=== PATIENT | female | born 1980 | race Caucasian/White ===

== ENCOUNTER 2019-03-18 08:04 | Outpatient (CLI) | payer OTHER ==
--- NOTE | 2019-03-18 11:08 | Mammography Report ---
Reason: ROUTINE MAMMO Procedure Date: 03/18/2019 Accession Number: [id number] / [id number] Procedure: VIKA - Screening Mammo w/Minesh CPT Code: Final Report FULL RESULT: EXAM: Screening Mammo w/Minesh DATE: 03/18/2019 8:31 AM CLINICAL HISTORY: The patient is an asymptomatic 38-year-old nulliparous female. Second degree family history of breast cancer. TECHNIQUE: (B) - Bilateral CC and MLO views were obtained. COMPARISON: Baseline. PARENCHYMAL PATTERN: (D) - The breasts demonstrate heterogeneously dense fibroglandular parenchyma bilaterally. FINDINGS: Nonspecific glandular asymmetry noted on this baseline study. There are no suspicious masses, calcifications, or areas of distortion. IMPRESSION: Negative examination. BI-RADS category 1. RECOMMENDATION: (ANNUAL) - Recommend routine annual screening mammography. BI-RADS CATEGORY: (1) - Negative. STANDARD QUALIFYING STATEMENTS: 1. This examination was not reviewed with the aid of Computer-Aided Detection (CAD). 2. A negative or benign imaging report should not preclude biopsy if clinically suspicious findings are present. 3. Dense breasts may obscure an underlying neoplasm. 4. This examination was reviewed with the aid of 3D breast imaging (tomosynthesis).
== END 2019-03-18 08:05 | disposition home or self-care (01) ==
LOC: DI 08:04
PROVIDERS: ATTEND Nurse Practitioner Obstetrics & Gynecology
DX: Z12.31 Encounter for screening mammogram for malignant neoplasm of breast (principal); Z80.3 Family history of malignant neoplasm of breast
CPT/HCPCS: 77063; 77067

== ENCOUNTER 2019-08-19 18:51 | Outpatient (CLI) | payer BC | END 2019-08-19 18:52 | disposition home or self-care (01) | LOC: COV 18:51 | PROVIDERS: ATTEND Family Medicine | DX: M79.10 Myalgia, unspecified site (principal); R53.83 Other fatigue; R68.83 Chills (without fever); R19.7 Diarrhea, unspecified | CPT/HCPCS: 81599 ==

== ENCOUNTER 2020-12-01 08:00 | Outpatient (CLI) | payer BC ==
[2020-12-01 23:24] LABS: CHLAMYDIA TRACHOMATIS DNA NEGATIVE (NEGATIVE); NEISSERIA GONORRHOEAE DNA NEGATIVE (NEGATIVE); TRICHOMONAS VAGINALIS DNA NEGATIVE (NEGATIVE)
== END 2020-12-01 23:59 | disposition home or self-care (01) ==
LOC: LAB.WC 08:00
PROVIDERS: ATTEND Nurse Practitioner Obstetrics & Gynecology
DX: Z11.3 Encounter for screening for infections with a predominantly sexual mode of transmission (principal)
CPT/HCPCS: 87491; 87591; 87661

== ENCOUNTER 2021-11-03 20:13 | Outpatient (CLI) | payer BC ==
--- NOTE | 2021-11-04 09:12 | Ultrasound Report ---
PROCEDURE: OB First Trimester w/TV INDICATIONS: POSITIVE TEST, UTERINE CYST OUTSIDE/PRIOR DATING DATA: Last menstrual period (LMP): 08/27/2021. LMP-based estimated date of delivery (TACOS): 06/03/2022. First dating scan (date and location): 10/20/2021. Estimated date of delivery (TACOS) from first dating scan: 05/31/2022. TECHNIQUE: Real-time scanning was performed of the fetus and maternal pelvic organs, with image documentation. Endovaginal scanning was also performed to better visualize the fetus and maternal ovaries. COMPARISON: 10/20/2021 FINDINGS: Embryo: Intrauterine gestation is present with the heart rate of 169 bpm. Mean sac diameter is 3.8 cm. Seltzer-rump length is 3.1 cm. Estimated gestational age by initial ultrasound is 10 weeks and 1 day, concordant with composted gest ational age today at 10 weeks. Maternal adnexal structures are not well seen on today's study. Left uterine horn fluid is slightly smaller measuring 2.1 x 1.8 x 1.7 cm today, previously 2.2 cm. Sm aller additional fluid collections are also again seen. Intramural fibroid is present, not measured today. IMPRESSION: Rodas intrauterine at 10 weeks and 1 day by initial ultrasound, concordant with today's biometry. The is located in the right aspect of the uterus. Fluid in the left aspect of the uterus is slightly smaller on today's study compared to 10/20/2021, and may represent an old perigestational hem orrhage. Additional small perigestational hemorrhagic foci also again seen. These can be followed on subsequent imaging, including second trimester anatomic survey. Reviewed by: Abisai Mcgowan MD on 11/04/2021 9:10 AM PDT Approved by: Abisai Mcgowan MD on 11/04/2021 9:10 AM PDT Station ID: [id number]
== END 2021-11-03 20:14 | disposition home or self-care (01) ==
LOC: DI 20:13
PROVIDERS: ATTEND Obstetrics & Gynecology
DX: N85.8 Other specified noninflammatory disorders of uterus (principal); Z32.01 Encounter for pregnancy test, result positive

== ENCOUNTER 2022-01-17 19:26 | Outpatient (CLI) | payer BC ==
--- NOTE | 2022-01-18 10:51 | Ultrasound Report ---
PROCEDURE: OB Detailed Eval INDICATIONS: SUPERVISION OF OUTSIDE/PRIOR DATING DATA: Last menstrual period (LMP): 08/27/2021. LMP-based estimated date of delivery (TACOS): 06/03/2022. First dating scan (date and location): 10/20/2021. Estimated date of delivery (TACOS) from first dating scan: 05/31/2022. TECHNIQUE: Real-time scanning was performed of the fetus, with image documentation and biometric measurements. Endovaginal scanning: None COMPARISON: 10/04/2021 FINDINGS: General: A single living intrauterine gestation is present. Presentation: Vertex Placenta: Placental position is posterior, without previa. Amniotic fluid index: 14.4 cm, normal for gestational age. heart rate: 150 beats per minute. Maternal cervical canal: 5.3 cm long; normal length is 2.5 cm or more. Uterine complex fibroid noted measuring approximately 5.6 cm biometrics: Biparietal diameter: 1.1 cm, 21 week 4 day Head circumference: 9.2 cm, 21 week 4 day Abdominal circumference: 16.2 cm, 21 week 2 day Femur length: 3.6 cm, 21 week 3 day Estimated gestational age from initial scan: 20 week 6 day Composite gestational age from present scan: 21 week 2 day Estimated weight and percentile: 418 g, 72nd percentile Measurement variability in biometric dating: +/- 10 days from 12-20 weeks gestation, +/- 2 weeks from 20-30 weeks gestation, +/- 3 weeks at 30 weeks gestation or later. Anatomic survey: Neuro: Ventricles are normal at less than 10 mm. Cisterna magna is normal at 3-11 mm. Cerebellum i s normal in size and morphology. Nuchal skin fold: Normal at less than 6 mm between 14 and 20 weeks gestational age. Face: Nose and lips, facial profile are normal. Spine: No evidence for spina bifida. Heart: 4-chambered heart is present, with normal ventricular outflow tracts. Diaphragm: Diaphragm is intact. Stomach: Left-sided stomach is present. Kidneys: No hydronephrosis. Normal is less than 5 mm in 2nd trimester, less than 7 mm in 3rd trimester. Cord: 3 vessel cord has orthotopic insertion. Bladder: Normal in size. Extremities: All 4 extremities are visualized. IMPRESSION: 1. Single live intrauterine consistent with 20 week 6 day gestation. No perigestational ble ed. 2. Complex myometrial fibroid, 5.6 cm Reviewed by: Kali Walden MD on 01/18/2022 9:50 AM JENNIFER Approved by: Kali Walden MD on 01/18/2022 9:50 AM JENNIFER Station ID: [id number]
== END 2022-01-17 19:27 | disposition home or self-care (01) ==
LOC: DI 19:26
PROVIDERS: ATTEND Obstetrics & Gynecology
DX: O09.512 Supervision of elderly primigravida, second trimester (principal); Z36.89 Encounter for other specified antenatal screening; D25.9 Leiomyoma of uterus, unspecified; O34.12 Maternal care for benign tumor of corpus uteri, second trimester; Z3A.20 20 weeks gestation of pregnancy

== ENCOUNTER 2022-02-18 09:40 | Outpatient (CLI) | payer BC ==
[2022-02-18 10:50] LABS: HCT - HEMATOCRIT 35.4 % (37.0-47.0); HGB - HEMOGLOBIN 11.8 g/dL (12.0-16.0); MEAN CORPUSCULAR HEMOGLOBIN 29.7 pg (27.0-31.0); MEAN CORPUSCULAR HGB CONC 33.3 g/dL (32.0-36.0); MEAN CORPUSCULAR VOLUME 89.2 fL (81.0-99.0); MEAN PLATELET VOLUME 9.6 fL (7.9-10.8); RED BLOOD COUNT 3.97 10^6/uL (4.20-5.40); RED CELL DISTRIBUTION WIDTH 12.9 % (12.0-15.0); WHITE BLOOD COUNT 12.1 x10^3/uL (4.8-10.8)
== END 2022-02-18 09:41 | disposition home or self-care (01) ==
LOC: LAB 09:40
PROVIDERS: ATTEND Obstetrics & Gynecology
DX: O09.92 Supervision of high risk pregnancy, unspecified, second trimester (principal); Z36.89 Encounter for other specified antenatal screening
CPT/HCPCS: 36415; 82950; 85027

== ENCOUNTER 2022-03-23 17:42 | Outpatient (CLI) | payer MEDICAID ==
[2022-03-23 18:10] VITALS: BP 128/75
[2022-03-23 18:30] LABS: BILIRUBIN,URINE NEGATIVE (NEGATIVE); GLUCOSE, URINE (UA) NEGATIVE (NEGATIVE); KETONES,URINE (UA) NEGATIVE (NEGATIVE); LEUKOCYTE ESTERASE, URINE NEGATIVE (NEGATIVE); NITRITE,URINE NEGATIVE (NEGATIVE); OCCULT BLOOD,URINE NEGATIVE (NEGATIVE); PH,URINE 6.5 PH (5.0-7.5); PROTEIN,URINE NEGATIVE (NEGATIVE); UROBILINOGEN,URINE 0.2 (NORMAL) E.U./dL (NORMAL)
[2022-03-23 18:33] LABS: CLARITY,URINE CLEAR (CLEAR)
--- NOTE | 2022-03-23 18:47 | PROVIDER PROGRESS NOTE ---
- HPI Chief Complaint: Labor Current : Vital Signs Temperature 98.6 F 03/23/22 18:07 Heart Rate 87 03/23/22 18:07 Respiratory Rate 18 03/23/22 18:07 Blood Pressure 128/75 03/23/22 18:07 Temperature 98.6 F 03/23/22 18:07 Heart Rate 87 03/23/22 18:07 Respiratory Rate 18 03/23/22 18:07 Blood Pressure 128/75 03/23/22 18:07 O2 Saturation If not protocol: Oxygen Flow, liters/minute - Procedures OB Procedure Performed: NST Diagnosis/Indication for NST: labor NST Procedure: EFM: 130-140s, moderate variability, positive accelerations 10x10, no decelerations [place]: no contractions noted NST reactive/Cat 1 Performed and read 03/23/22 Service Date of procedure: 03/23/22 - Plan Plan: 41yo at 29.5w presenting with left pelvic discomfort [place]. Denies regular contractions, no leaking fluid, no bleeding. Good movement. During bedside ultrasound tender with extremities movement in same area, discomfort may be due to position or round ligament pain. Tolerating regular diet. BM today. No vomiting. VSS GEN: NAD CV: Regular rate Resp: Breathing unlabored Abd: soft, TTP left side where parts palpated Ext: nt TV US: CL 3.2cm, closed SVE: closed, long, posterior, -3 OB US Bedside: BPP 8/8 NST reactive 41yo at 29.5, false labor third trimester - NST reactive and BPP reassuring - CL long and SVE closed - labor precautions - Follow up as scheduled WC
== END 2022-03-23 18:45 | disposition home or self-care (01) ==
LOC: WFO 17:42 → FBP 17:46 → WFO 18:45
PROVIDERS: ATTEND Obstetrics & Gynecology
DX: O47.03 False labor before 37 completed weeks of gestation, third trimester (principal); Z3A.29 29 weeks gestation of pregnancy
CPT/HCPCS: 81001; 81003; 87086; 99214

== ENCOUNTER 2022-05-09 17:00 | Outpatient (CLI) | payer MEDICAID ==
--- NOTE | 2022-05-10 15:13 | Ultrasound Report ---
PROCEDURE: OB F/U or Repeat INDICATIONS: UTERINE SIZE DATE DISCREPENCY OUTSIDE/PRIOR DATING DATA: Last menstrual period (LMP): 08/27/2021. LMP-based estimated date of delivery (TACOS): 06/03/2022. First dating scan (date and location): 10/20/2021. Estimated date of delivery (TACOS) from first dating scan: 05/31/2022. The below data below was generated using the ultrasound TACOS of 05/31/2022 TECHNIQUE: Real-time scanning was performed of the fetus, with image documentation and biometric measurements. COMPARISON: OB ultrasound 01/17/2022 FINDINGS: General: A single living intrauterine gestation is present. Presentation: Vertex Placenta: Placental position is posterior, without previa. Amniotic fluid index: 10.2 cm, within normal limits for gestational age. Largest pocket measures 3. 3 cm heart rate: 145 beats per minute. Maternal cervical canal: Not well seen biometrics: Biparietal diameter: 9.2 cm 37 weeks 2 days Head circumference: 34 cm 39 weeks 1 day Abdominal circumference: 32.2 cm 36 weeks 0 days Femur length: 6.9 cm 35 weeks 2 days Estimated gestational age from initial scan: 36 weeks 6 days Composite gestational age from present scan: 37 weeks 0 days Estimated weight and percentile: 2890 g 39th percentile Measurement variability in biometric dating: +/- 10 days from 12-20 weeks gestation, +/- 2 weeks from 20-30 weeks gestation, +/- 3 weeks at 30 weeks gestation or more. Other: Incidental note of a nuchal cord. IMPRESSION: Single live intrauterine with ultrasound gestational age today of 37 weeks 0 days. Incidental note of a nuchal cord. Reviewed by: Caroline Oswald MD on 05/10/2022 3:11 PM PST Approved by: Caroline Oswald MD on 05/10/2022 3:11 PM PST Station ID: [id number]
== END 2022-05-09 17:01 | disposition home or self-care (01) ==
LOC: DI 17:00
PROVIDERS: ATTEND Obstetrics & Gynecology
DX: O26.843 Uterine size-date discrepancy, third trimester (principal); Z3A.37 37 weeks gestation of pregnancy

== ENCOUNTER 2022-05-11 08:00 | Outpatient (CLI) | payer MEDICAID | END 2022-05-11 23:59 | disposition home or self-care (01) | LOC: LAB.WC 08:00 | PROVIDERS: ATTEND Obstetrics & Gynecology | DX: Z36.85 Encounter for antenatal screening for Streptococcus B (principal) | CPT/HCPCS: 87797 ==

== ENCOUNTER 2022-05-23 16:35 | Inpatient (IN) | payer MEDICAID ==
[2022-05-23 17:55] LABS: RUPTURE OF MEMBRANES PLUS POSITIVE (NEGATIVE)
[2022-05-23] MEDS ORDERED: SODIUM CHLORIDE FLUSH 0.9% 10 ML SYRINGE IVP PRN (18:53)
[2022-05-23] MEDS ORDERED: NIFEdipine 10 MG CAPSULE PO PRN (18:53)
[2022-05-23] MEDS ORDERED: LABETALOL 20 MG/4 ML SYRINGE IVP PRN ×3 (18:53)
[2022-05-23] MEDS ORDERED: hydrALAZINE INJ 20 MG/ML VIAL IVP PRN ×2 (18:53)
[2022-05-23] MEDS ORDERED: METHYLERGONOVINE 0.2 MG/ML VIAL IM PRN (18:53)
[2022-05-23] MEDS ORDERED: CARBOPROST TROMETHAMINE 250 MCG/ML AMP IM PRN (18:53)
[2022-05-23] MEDS ORDERED: miSOPROStoL 200 MCG TABLET BC PRN (18:53)
[2022-05-23] MEDS ORDERED: fentaNYL 100 MCG/2 ML VIAL IVP PRN (18:53)
[2022-05-23] MEDS ORDERED: TRANEXAMIC ACID IN NACL 1,000 MG/100 ML BAG IV PRN (18:53)
[2022-05-23] MEDS ORDERED: miSOPROStoL 200 MCG TABLET PR PRN (18:53)
[2022-05-23] MEDS ORDERED: OXYTOCIN/SODIUM CHLORIDE 500 ML IV PRN (18:53)
[2022-05-23] MEDS ORDERED: lidocaine 1% 20 ML MDV ID PRN (18:53)
[2022-05-23] MEDS ORDERED: OXYTOCIN 10 UNIT/ML VIAL IM PRN (18:53)
[2022-05-23] MEDS ORDERED: miSOPROStoL 100 MCG TABLET BC SCH (19:00)
[2022-05-23] MEDS ORDERED: SODIUM CHLORIDE FLUSH 0.9% 10 ML SYRINGE IVP SCH (19:00)
[2022-05-23] MEDS ORDERED: OXYTOCIN/SODIUM CHLORIDE 500 ML IV SCH (19:00)
[2022-05-23 19:05] LABS: BASOPHILS # (AUTO) 0.1 10^3/uL (0.0-0.1); BASOPHILS % (AUTO) 0.5 %; EOSINOPHILS # (AUTO) 0.2 10^3/uL (0.0-0.7); EOSINOPHILS % (AUTO) 1.5 %; HCT - HEMATOCRIT 37.2 % (37.0-47.0); HGB - HEMOGLOBIN 12.6 g/dL (12.0-16.0); LYMPHOCYTES # (AUTO) 2.4 10^3/uL (1.5-3.5); LYMPHOCYTES % (AUTO) 17.6 %; MEAN CORPUSCULAR HEMOGLOBIN 29.3 pg (27.0-31.0); MEAN CORPUSCULAR HGB CONC 33.9 g/dL (32.0-36.0); MEAN CORPUSCULAR VOLUME 86.5 fL (81.0-99.0); MEAN PLATELET VOLUME 10.9 fL (7.9-10.8); MONOCYTES # (AUTO) 1.3 10^3/uL (0.0-1.0); MONOCYTES % (AUTO) 9.5 %; NEUTROPHILS # (AUTO) 9.7 10^3/uL (1.5-6.6); NEUTROPHILS % (AUTO) 70.5 %; PLT - PLATELET COUNT 389 10^3/uL (130-450); RED CELL DISTRIBUTION WIDTH 12.6 % (12.0-15.0); WHITE BLOOD COUNT 13.7 x10^3/uL (4.8-10.8)
--- NOTE | 2022-05-23 19:06 | HISTORY & PHYSICAL EXAMINATION ---
Admit History - Visit Reason Visit Reason: Membranes rupture - : 2 : 1 Care: positive: [facility] Risk/History: positive: None, Other (advanced maternal age) Complications This : positive: None - Mother's Labs Mother's Blood Type: positive: A Mother's RH: positive: Positive GBS: positive: Group B Step Negative Rubella Status: positive: Immune Meds/Allgy - Allergies Allergies/Adverse Reactions: Allergies Allergy/AdvReac Type Severity Reaction Status Date / Time No Known Drug Allergies Allergy Verified 03/23/22 18:28 Review of Systems - Cardiovascular Cariovascular: denies: Irregular heart rate, Chest pain, Edema - Respiratory Respiratory: denies: SOB at rest - Gastrointestinal Gastrointestinal: denies: Abdominal pain Physical - Abdominal Exam Vital Signs: Temp Pulse Resp BP Pulse Ox O2 Flow Rate 98.1 F 82 16 137/81 H 100 05/23/22 17:00 05/23/22 17:00 05/23/22 17:00 05/23/22 17:00 05/23/22 17:00 Contraction Frequency (min/apart): no contractions Uterine Resting Tone: positive: Soft - Monitoring Strip Review: positive: Category I - Presentation Presentation: positive: Vertex - Vaginal Exam Membranes: positive: Membranes ruptured - Speculum Exam Speculum Exam Performed: positive: No Findings: positive: Other (amniosure positive) Plan for Labor - Plan For Labor I expect patient to be DC'd or transferred within 96 hours.: Yes Plan for Labor: 1. admit to labor and delivery 2. counseled patient regarding induction. At this point, patient would like expectant management with potential augmentation at 9:30 pm. Discussed prolonged rupture of membranes with increased risk of infection. 3. GBS negative 4. wellbeing is reassuring
--- NOTE | 2022-05-23 20:44 | PROVIDER PROGRESS NOTE ---
Labor Progress Note - Uterine Monitoring Uterine Monitoring Mode: positive: External toco Contraction Frequency (min/apart): none - Monitoring Monitor Mode: positive: External ultrasound Heart Rate Variability: positive: Moderate (6-25 bmp) Accelerations: positive: Present, 15x15 - Vaginal Exam Dilation (in cm): 0 - Labor Progress Note Labor Progress Note/Additional Text: Patient is not dilated. Discussed management options. Will start with cytotec 50 mcg. Risks, benefits, alternatives discussed and all questions answered. I reviewed labor process and we discussed pain management options- patient is open to epidural if needed.
[2022-05-24] MEDS: LACTATED RINGERS 1,000 ML IV SCH ×2 (10:38→15:11)
[2022-05-24] MEDS ORDERED: ROPIVACAINE 0.2% 200 MG/100 ML BAG EP ONE (10:46)
[2022-05-24] MEDS ORDERED: ROPIVACAINE 0.2% 200 MG/100 ML BAG EP PRN ×2 (11:18→17:19)
[2022-05-24] MEDS ORDERED: NALOXONE 0.4 MG/ML VIAL IVP PRN (11:18)
[2022-05-24] MEDS ORDERED: ePHEDrine 50 MG/ML VIAL IVP PRN (11:18)
--- NOTE | 2022-05-24 11:18 | ANESTHESIA ---
Pre-Anesthesia VS, & Labs - Diagnosis active labor - Procedure vaginal delivery Vital Signs: Temp Pulse Resp BP Pulse Ox O2 Flow Rate 36.9 C 82 16 137/81 H 100 05/23/22 19:40 05/23/22 17:00 05/23/22 17:00 05/23/22 17:00 05/23/22 17:00 Height: 5 ft 7 in Weight (kg): 95.617 kg Body Mass Index: 33.0 BMI Classification: Obese - NPO Other (clear liquids) - Is Patient ?: Yes - Lab Results Current Lab Results: Laboratory Tests 05/23/22 18:30: WBC 13.7 H, RBC 4.30, Hgb 12.6, Hct 37.2, MCV 86.5, MCH 29.3, MCHC 33.9, RDW 12.6, Plt Count 389, MPV 10.9 H, Neut # (Auto) 9.7 H, Lymph # (Auto) 2.4, Wilkes # (Auto) 1.3 H, Eos # (Auto) 0.2, Baso # (Auto) 0.1, Absolute Nucleated RBC 0.00, Nucleated RBC % 0.0 05/23/22 18:30: Blood Type A POSITIVE, Antibody Screen NEGATIVE Lab results reviewed: Yes Fish Bones: 05/23/22 18:30 Home Medications and Allergies Active Medications Carboprost Tromethamine (Carboprost Tromethamine 250 Mcg/Ml Amp) 250 mcg IM .ONCE PRN PRN Reason: Hemorrhage Fentanyl (Fentanyl 100 Mcg/2 Ml Vial) 50 mcg IVP Q1H PRN PRN Reason: Severe Pain (score 7-10) Hydralazine HCl (Hydralazine Inj 20 Mg/Ml Vial) 5 - 10 mg IVP Q20M PRN; Protocol PRN Reason: SBP> or= 160 OR DBP> or= 110 Hydralazine HCl (Hydralazine Inj 20 Mg/Ml Vial) 10 mg IVP .ONCE PRN; Protocol PRN Reason: SBP> or= 160 OR DBP> or= 110 Oxytocin/Sodium Chloride (Pitocin/Sodium Chloride) 500 mls @ 999 mls/hr IV PRN PRN; Protocol PRN Reason: POST- HEMORR PREVENTION Tranexamic Acid (Tranexamic 1,000 Mg/100ml-Nacl) 1,000 mg in 100 mls @ 600 mls/hr IV Q30M PRN PRN Reason: EBL >1200mL and within 3hr Lactated Ringer's (Lr) 1,000 mls @ 75 mls/hr IV .[id number] GENNARO Oxytocin/Sodium Chloride (Pitocin/Sodium Chloride) 500 mls @ 1 mls/hr IV TITR GENNARO; Protocol Labetalol HCl (Labetalol 20 Mg/4 Ml Syringe) 20 - 80 mg IVP Q10M PRN; Protocol PRN Reason: SBP> or= 160 OR DBP> or= 110 Labetalol HCl (Labetalol 20 Mg/4 Ml Syringe) 20 mg IVP .ONCE PRN; Protocol PRN Reason: SBP> or= 160 OR DBP> or= 110 Labetalol HCl (Labetalol 20 Mg/4 Ml Syringe) 20 - 40 mg IVP Q10M PRN; Protocol PRN Reason: SBP> or= 160 OR DBP> or= 110 Lidocaine HCl (Lidocaine 1% 20 Ml Mdv) 20 ml ID .ONCE PRN PRN Reason: PERINEAL REPAIR Stop: 05/26/22 18:53 Methylergonovine Maleate (Methylergonovine 0.2 Mg/Ml Vial) 0.2 mg IM .ONCE PRN PRN Reason: Hemorrhage Misoprostol (Misoprostol 200 Mcg Tablet) 600 mcg BC .ONCE PRN PRN Reason: Hemorrhage Misoprostol (Misoprostol 200 Mcg Tablet) 800 mcg VT .ONCE PRN PRN Reason: Hemorrhage Misoprostol (Misoprostol 100 Mcg Tablet) 50 mcg BC Q4H [facility] Stop: 05/24/22 15:01 Last Admin: 05/23/22 20:43 Dose: 50 mcg Nifedipine (Nifedipine 10 Mg Capsule) 10 - 20 mg PO Q20M PRN; Protocol PRN Reason: SBP> or= 160 OR DBP> or= 110 Oxytocin (Oxytocin 10 Unit/Ml Vial) 10 unit IM .ONCE PRN PRN Reason: Step One if no IV access. Sodium Chloride (Sodium Chloride Flush 0.9% 10 Ml Syringe) 10 ml IVP PRN PRN PRN Reason: NEEDED PER PROVIDER ORDERS Sodium Chloride (Sodium Chloride Flush 0.9% 10 Ml Syringe) 10 ml IVP Q8H [facility] Allergies/Adverse Reactions: Allergies Allergy/AdvReac Type Severity Reaction Status Date / Time No Known Drug Allergies Allergy Verified 03/23/22 18:28 Anes History & Medical History - Anesthetic History Family history of Anesthesia Complications: Denies Family history of Malignant Hyperthermia: Denies - Medical History Cardiovascular: reports: None Pulmonary: reports: None Gastrointestinal: reports: None Urinary: reports: None Neuro: reports: None Musculoskeletal: reports: None Endocrine/Autoimmune: reports: None Blood Disorders: reports: None Skin: reports: None Smoking Status: Never smoker Psychosocial: reports: No issues indicated History of Cancer?: No - Obstetrical History : 2 Parity: 0 Events: reports: None, Other (advanced maternal age) Complications: reports: None Exam General: Alert, Oriented x3, Cooperative, No acute distress Dental: WNL Mouth Openin Fingerbreadth Neck Mobility: Normal Mallampati classification: II Thyromental Distance: 4-6 cm Mental/Cognitive Status: Alert/Oriented X3, Normal for patient Plan Anesthesia Type: Epidural Consent for Procedure(s) Verified and Reviewed: Yes Code Status: Attempt Resuscitation ASA classification: 2-Mild systemic disease Is this case an emergency?: No
[2022-05-24] MEDS ORDERED: OXYTOCIN/SODIUM CHLORIDE 500 ML IV SCH (12:52)
--- NOTE | 2022-05-24 13:00 | PROVIDER PROGRESS NOTE ---
Labor Progress Note - Uterine Monitoring Uterine Monitoring Mode: positive: External toco Contraction Frequency (min/apart): 6 Contraction Intensity: positive: Mild to moderate Uterine Resting Tone: positive: Soft - Monitoring Monitor Mode: positive: External ultrasound Heart Rate Baseline: 140 Heart Rate Variability: positive: Moderate (6-25 bmp) Accelerations: positive: Present, 15x15 Decelerations: positive: None Strip Review: positive: Category I - Vaginal Exam Dilation (in cm): 5 Effacement (%): 70 Station: -3 Cervical Position: Midposition - Labor Progress Note Labor Progress Note/Additional Text: 41yo at 38.4w admitted for PROM - Misoprostol 50mcg x1 - Receiving nitrous oxide now - Discussed Pitocin, she will accept Pitocin now. Proceed with IOL. She would like epidural prior to Pitocin. - Reevaluate this afternoon - PROM now, 22h. Afebrile and Cat 1. GBS neg.
[2022-05-24] MEDS ORDERED: fentaNYL 100 MCG/2 ML VIAL ONE (16:46)
[2022-05-24] MEDS ORDERED: SODIUM CHLORIDE 0.9% 10 ML VIAL IVP ONE (16:46)
--- NOTE | 2022-05-24 17:21 | ANESTHESIA PROCEDURE NOTE ---
Anesthesia Epidural Template - Patient Report Patient Reports: positive: Other (Complains of mid-abdominal cramping/pressure) - Plan Plan: positive: Other (changed rate to 12ml [id number] [id number]) - Other Comments Other Comments: Epidural bolused with 100 mcg fentanyl in 8ml PFNS. Reports pain relieved.
--- NOTE | 2022-05-24 21:16 | DELIVERY NOTE ---
Delivery Note - Labor Labor: positive: Augmented by oxytocin (up to 20mu) - Delivery Method Infant Delivery Method: positive: Spontaneous vaginal delivery - Cervical Ripening Method Cervical Ripening Method: positive: Misoprostil (50mcg x1) - Presentation Presentation: positive: Vertex, OA - occiput anterior - Nuchal Cord Nuchal Cord: positive: Present (x1, reduced) - Anesthetic Anesthetic Type: - Amniotic Fluid Description Amniotic Fluid Description: positive: Clear - Episiotomy Type Episiotomy Type: positive: None - Laceration Laceration: positive: 2nd degree (vaginal) - Suture Suture Type: positive: Vicryl Suture Size: positive: 3-0 - Delivery Outcome Delivery Outcome: positive: Livebirth - Cooter Cooter: positive: Placed in direct skin contact with mother, Bulb syringe, Stimulated, Warmed, [place] used sex: positive: Male - Cord Cord: positive: 3 vessels - Placenta Placenta: positive: Intact, Spontaneous - Estimated Blood Loss Estimated Blood Loss (in cc): 250 - Post Delivery Events Post Delivery Events: positive: No post delivery events - Delivery Comments (Free Text/Narrative) Delivery Comments (Free Text/Narrative): 100/0 and maternal pushing began with good efforts. Pushed about one hour. Head delivered, OA. Nuchal cord x1, reduced. Body delivered without difficulty. placed on mother's abdomen. Delayed cord clamping. Cord blood collected. Fundus firm. Placenta delivered spontaneously and intact, marginal cord insertion, 3vc. Vagina and perineum inspected- second degree vaginal laceration repaired in usual fashion with 3-0 vicryl. Hemostasis. QBL 250cc. Family bonding at bedside doing well.
[2022-05-24] MEDS ORDERED: HYDROCORTISONE 1% CREAM 28 GM TUBE PR PRN (21:27)
[2022-05-24] MEDS ORDERED: WITCH HAZEL/GLYCERIN 1 PAD TOP PRN (21:27)
[2022-05-24] MEDS ORDERED: LACTATED RINGERS 1,000 ML IV SCH (22:00)
[2022-05-24] MEDS: ACETAMINOPHEN 500 MG TABLET PO SCH (22:01)
[2022-05-24] MEDS: IBUPROFEN 800 MG TABLET PO SCH (22:01)
[2022-05-25] MEDS: IBUPROFEN 800 MG TABLET PO SCH ×5 (03:57→22:59)
[2022-05-25] MEDS: ACETAMINOPHEN 500 MG TABLET PO SCH ×3 (05:59→23:00)
[2022-05-25] MEDS: DOCUSATE SODIUM 100 MG CAPSULE PO SCH ×2 (09:32→21:25)
--- NOTE | 2022-05-25 12:47 | PROVIDER PROGRESS NOTE ---
Subjective - Prog Note Date Prog Note Date: 05/25/22 Prog Note Time: 08:45 - Subjective Subjective: Subjective Patient reports she is doing well. Lochia appropriate. Denies heavy bleeding. Ambulating. Pelvic and abdominal pain well-controlled. Tolerating oral intake. Diet: Regular. Voiding without difficulty. Passing flatus. Denies BM. Patient is bonding with baby in room Breast feeding going well. Denies feeling lightheaded, dizzy or excessively fatigued. Control: Undecided Objective General: Alert, oriented, no apparent distress. Cardiovascular: Regular rate. Regular rhythm. Lungs: No increased work of breathing. Abdomen: Uterus firm. Below umbilicus. No guarding or rebound. Extremities: No pain on palpation. No cords palpated. Distal pulses intact. Assessment and Plan day 1. -Routine care -Anticipate discharge tomorrow Objective - Vital Signs/Intake & Output Vital Signs: Vital Signs x48h Temp Pulse Resp BP 05/25/22 09:15 97.9 F 87 14 120/80 Intake & Output: Intake & Output 05/22/22 05/23/22 05/24/22 05/25/22 23:59 23:59 23:59 23:59 Intake Total 2245.833 400 Output Total 1275 300 Balance 970.833 100 - Lab Results Fish Bones: 05/23/22 18:30
[2022-05-26] MEDS: IBUPROFEN 800 MG TABLET PO SCH ×2 (05:05→11:13)
[2022-05-26] MEDS: DOCUSATE SODIUM 100 MG CAPSULE PO SCH (07:37)
[2022-05-26] MEDS: ACETAMINOPHEN 500 MG TABLET PO SCH (07:37)
[2022-05-26 08:08] VITALS: BP 110/55
--- NOTE | 2022-05-26 11:59 | Discharge Plan ---
Discharge Plan Problem Reviewed?: Yes Disposition: Home, Self Care Condition: Good Diet: Regular Activity Restrictions: Activity as Tolerated Shower Restrictions: No Weight Bearing: Full Weight Instruction Topics: Vaginal After, Vaginal Incis Care, Depression , No Smoking: If you smoke, Please STOP! Call for help. Follow-up with: Oscar Fritz MD [Provider Admit Priv/Credential] - Gricelda Greenwood MD [Primary Care Provider] -
--- NOTE | 2022-05-26 12:04 | DISCHARGE SUMMARY ---
"Discharge Summary Admit Date: 05/23/22 Discharge Date: 05/26/22 Discharging Provider: Korin Knutson DO Condition at Discharge: Good Discharge Disposition: 01 Home, Self Care Discharge Facility Name: [facility] - DIAGNOSES Admission Diagnoses: Premature rupture of membranes, 38w - HPI History of Present Illness: 41yo presented to [facility] at 38.3w with rupture of membranes not yet in labor. - CONSULTS | PROCEDURES Consultations: Epidural Procedures: Epidural - HOSPITAL COURSE Hospital Course: 41yo presented to [facility] at 38.3w with rupture of membranes not yet in labor. She was given misoprostol x1 and then started on Pitocin. Epidural given. She progressed to 10cm. , uncomplicated. Second degree vaginal laceration repaired with 3-0 Vicryl. Recovering well . Appropriate lochia. Labial swelling, which is stable. well. Mood is good. She feels ready for discharge PPD#2. care reviewed. - ALLERGIES Allergies/Adverse Reactions: Allergies Allergy/AdvReac Type Severity Reaction Status Date / Time No Known Drug Allergies Allergy Verified 03/23/22 18:28 - PHYSICAL EXAM AT DISCHARGE General Appearance: positive: No acute distress Eyes Bilateral: positive: EOMI Abdomen: positive: Non-tender (FF) Extremities: positive: Non-tender - LABS Result Diagrams: 05/23/22 18:30 - QUALITY (Female Hip Fx Only) Was patient sent home on osteoporosis medication?: No - FOLLOW UP Follow Up: 06/01 1p as scheduled or about 2w - TIME SPENT Time Spent in Discharge (Minutes): 30"
--- NOTE | 2022-05-26 12:51 | Labor Flowsheet ---
Labor Flowsheet Datetime Report Generated by CPN: 05/26/2022 12:51 Datetime: 05/26/2022 07:52 VITAL SIGNS NBP Sys/Yesika/Mean (mmHg): 110 : 55 : 67 Pulse: 65 Datetime: 05/25/2022 16:04 SpO2 (%): 98 Datetime: 05/25/2022 01:00 Stage of : Datetime: 05/25/2022 00:52 Respirations: 18 Datetime: 05/24/2022 23:57 Temperature (C): 36.8 Temperature Route: Oral Datetime: 05/24/2022 22:01 PAIN Pain Scale: 3 Pain Presence: Constant Pain Type: Dull Pain Location: Perineum Pain Relief Measures: Pain Medication Given; Comfort Measures Datetime: 05/24/2022 20:46 MEDICATIONS Pitocin (milliunits): Increased to @ 999 Datetime: 05/24/2022 20:45 LaborFlag: Labor Datetime: 05/24/2022 20:40 Stage 2 Comments: HEAD OUT Datetime: 05/24/2022 20:39 UTERINE ACTIVITY Monitor Mode: External Frequency (min): 2-2.5 Quality: Strong Duration (sec): 30-50 Pattern: Normal: <= 5 Contractions in 10 Minutes Resting Tone (Palpate): Relaxed Comments: unable to determine HR or category due to maternal movement during pushing. Pt gave verbal confirmation of movement during pushing Datetime: 05/24/2022 20:37 Pushing Progress: with Pushing Datetime: 05/24/2022 20:35 ASSESSMENT A Monitor Mode: External US FHR Baseline Rate : 145 Variability: Moderate 6-25 bpm Accelerations: None Datetime: 05/24/2022 20:32 STAGE 2 Pushing: Coached on Pushing; Urge to Push Pushing Position: Pushing with Contractions; Pushing Lithotomy Datetime: 05/24/2022 20:31 Monitor Interventions for FHR: Ultrasound Adjusted Datetime: 05/24/2022 20:20 Decelerations: Early Category: Category I Datetime: 05/24/2022 19:55 FHR Baseline Changes: No Baseline Change Datetime: 05/24/2022 19:31 I/O Interventions: Lindquist Discontinued Patient Care Comments: 75ML Datetime: 05/24/2022 19:21 Exam by: Dr Cayabyab Vaginal Exam Comments: test push Datetime: 05/24/2022 19:19 Communication Comments: Dr. Cayabyab at the bedside Datetime: 05/24/2022 19:15 ANESTHESIA Anesthesia Level Check: T9 Datetime: 05/24/2022 18:45 Pitocin Checklist: No More than 1 Late Deceleration Occurred in Past 30 Minutes; No More than 5 [place] Contractions in 10 Minutes for any 20 Minute Interval; Uterus Palpates Soft between Contractions Datetime: 05/24/2022 18:40 VAGINAL EXAM Dilatation (cm): 10.0 Effacement (%): 100 Station: 0 Datetime: 05/24/2022 18:20 PATIENT CARE Patient Position/Activity: HOB Lowered; Right Lateral Datetime: 05/24/2022 17:54 Monitor Interventions for UA: [place] Adjusted Datetime: 05/24/2022 17:01 Medication Comments: PCEA bag changed, 2nd RN @ bedside for verification Datetime: 05/24/2022 17:00 Comfort Measures: Breathing/Relaxation Datetime: 05/24/2022 16:49 Pain Coping: Breathing Through Contractions; Requesting Pain Medication or Epidural Datetime: 05/24/2022 16:45 Anesthesia Comments: Fentanyl bolus given via CARROLL by FACILITY SUPERVISOR Danilo Datetime: 05/24/2022 14:15 Contraction Comments: per palpation Datetime: 05/24/2022 12:52 COMMUNICATION Communication: Call/Page Returned by Provider Provider Notified (Name): DrAnival Osorioyalatasha called for update. New orders to increase pitocin gtt 2x2. Notification Reason: Status Update Datetime: 05/24/2022 11:45 Pain Goal: 5 Datetime: 05/24/2022 09:39 Pain Assessment Comments: RN at bedside for support Datetime: 05/24/2022 06:38 Provider Reviewed Strip: No Datetime: 05/24/2022 05:30 Actions for Decelerations: Sterile Vaginal Exam Datetime: 05/24/2022 05:28 Amniotic Fluid Color: Clear Amniotic Fluid Amount: Small Amniotic Fluid Odor: Normal Vaginal Bleeding: Normal Show Cervix, Consistency: Soft Cervix, Position: Posterior Datetime: 05/24/2022 03:23 MATERNAL ASSESSMENT Nausea/Vomiting: Present Maternal Comments: Emesis 400mL Datetime: 05/24/2022 02:35 Hygiene: Complete Bath Datetime: 05/24/2022 01:23 Membranes Ruptured Date/Time: 05/23/2022 15:00 Membranes Rupture Method: Spontaneous Datetime: 05/23/2022 20:43 Cervical Ripening Agents: Cytotec @
--- NOTE | 2022-06-14 15:45 | PROCEDURE REPORT ---
- HPI Diagnosis/Indication for NST: Other (rupture of membranes) Current EDU 06/03/22 Gestation 38 Weeks and 3 Days 2 Para 1 Vital Signs Temperature 98.1 F 05/23/22 17:00 Heart Rate 82 05/23/22 17:00 Respiratory Rate 16 05/23/22 17:00 Blood Pressure 137/81 H 05/23/22 17:00 O2 Saturation 100 05/23/22 17:00 Temperature 98.2 F 05/26/22 07:55 Heart Rate 64 05/26/22 07:55 Respiratory Rate 18 05/26/22 07:55 Blood Pressure 110/55 L 05/26/22 07:55 O2 Saturation 99 05/26/22 07:55 If not protocol: Oxygen Flow, liters/minute - NST Procedure NST Procedure Start Date 05/23/22 Start Time 17:10 Stop Time 17:30 Vibroacoustic Stimulation Used No Patient States Movement Yes Reactive NST. Patient admitted with rupture of membranes, see H and P. - Results and Plan Plan: Reactive NST at term, patient admitted with SROM, see h and p.
== END 2022-05-26 12:15 | disposition home or self-care (01) | DRG 807 ==
LOC: WFO 16:35 → FBP 16:38 → WFO 18:52 → FBP 18:53
PROVIDERS: ADMIT Obstetrics & Gynecology Obstetrics; ATTEND Obstetrics & Gynecology
PROC: 3E033VJ Introduction of Other Hormone into Peripheral Vein, Percutaneous Approach (ICD-10-PCS; principal; 2022-05-24)
PROC: 10E0XZZ Delivery of Products of Conception, External Approach (ICD-10-PCS; 2022-05-24)
PROC: 0KQM0ZZ Repair Perineum Muscle, Open Approach (ICD-10-PCS; 2022-05-24)
DX: O42.12 Full-term premature rupture of membranes, onset of labor more than 24 hours following rupture (principal); Z37.0 Single live birth; O69.81X0 Labor and delivery complicated by cord around neck, without compression, not applicable or unspecified; O70.1 Second degree perineal laceration during delivery; Z3A.38 38 weeks gestation of pregnancy; O99.214 Obesity complicating childbirth
CPT/HCPCS: 59025; 84112; 85025; 86850; 86900; 86901; A9270; J7120; 99215

== ENCOUNTER 2025-02-04 08:05 | Inpatient (IN) ==
--- NOTE | 2025-02-04 08:47 | HISTORY & PHYSICAL EXAMINATION ---
Admit History Smoking Status: Never smoker Other Maternal History Other Maternal History: HPI: Patient is a 44-year-old G4, P1 at 40 weeks 2 days gestation presenting for induction of labor secondary to advanced maternal age at term. She has good movement. Denies loss of fluid. No ROSARIO/BV or RUQP. No vaginal bleeding. Denies nausea and vomiting. Denies urinary urgency or dysuria. All other symptoms reviewed and were negative except per HPI. Course LMP: 04/28/2024 TACOS by LMP: 02/02/2025 US:06/24/2024 @ 7+5 (02/05/25) Final TACOS:02/02/2025 c/w LMP Doesn't want to know gender! Uterine fibroids: Anatomy scan: Anterior 2.4 cm, lower uterine segment, 4.5 cm, left: 7.4 cm. AMA: Started aspirin at 15 weeks NST at 36 weeks. EFW scheduled 01/14/2025- 3214.3g, 62.6% Pre- Weight: 200 lb BMI: 31.3 Blood type: A+ Antibody: negative CBC: H/H/PLT- 12.6/37.9 359 RUB: immune VZV:Immune HBsAg: Negative HepC: NR RPR/AB-EIA: NR HIV: NR PAP:10/25/2021 NILM HPV- GC/CT: negative HSV: denies Genetic testing: NIPT normal AFP:Negative Covid: declined Flu: declined FAS:09/30 Placenta:Anterior w/o previa Cord: 3VC PAL: 14.1cm WNL EFW: 514g, 65th %ile 50gm OGCT: 83 3HR GTT: TDAP:11/04/24 Breast Pump:has one Antibody screen: 3rd trimester H/H/PLT- 12.5/36.2/364 RPR- NR 3rd trimester HIV GBS: POSITIVE A Delivery plan: vag del. Contraception: Condoms Meds/Allgy Home Medications Ambulatory Orders Medication Instructions Recorded Confirmed vits no.126-ferrous fum tab PO QDAY 06/17/24 02/03/25 28 mg iron-folic acid 800 mcg tablet (Classic ) aspirin 81 mg tablet,delayed 81 mg PO QDAY 10/07/24 release (Adult Low Dose Aspirin) Allergies Allergies Allergy/AdvReac Type Severity Reaction Status Date / Time No Known Drug Allergies Allergy Verified 02/03/25 09:15 [facility] Active Problems All Active Problems (Updated 02/04/25 @ 08:46 by Oscar Fritz MD) 40 weeks gestation of (Acute) Supervision of elderly multigravida (Acute) Positive test (Acute) Family history of breast cancer (Acute) Medical History Medical History (Updated 02/04/25 @ 08:46 by Oscar Fritz MD) URI (upper respiratory infection) Encounter for other specified screening Encounter for supervision of normal , unspecified, first trimester Post depression Family History Family History (Updated 06/17/24 @ 11:29 by Aishwarya Ortez RN) Mother Heart attack High blood pressure Grandfather Heart attack Lung cancer Grandmother Heart attack Breast cancer Aunt Diabetes Obesity Arthritis Father Arthritis Social History Social History (Updated 12/04/24 @ 14:02 by Oscar Fritz MD) Smoking Status: Never smoker Second hand tobacco smoke exposure: No Do you dip or chew tobacco?: No Do you vape?: No Patient requests smoking cessation consult: No Living arrangement: At home Living Condition: With spouse/s.o. 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 Respiratory: Normal rate of respiration. No accessory muscle use, normal respiratory effort. Abdomen: Gravid, nontender, nondistended Extremities: Normal range of motion Neuro: Oriented x3. Normal movements Psych: Appropriate mood and affect. Normal judgment and insight SVE: 0/0/-3 (cervix high, but soft. Unable to get to internal os so there may be some dilation. Plan for Labor Plan For Labor I expect patient to be DC'd or transferred within 96 hours.: Yes Conclusion/Plan Problem List (1) 40 weeks gestation of : Plan: Plan for labor induction. Cervix too high to check easily. Will start with at least 1 dose of misoprostol followed by hopeful amniotomy or oxytocin. Plan on vaginal delivery. Discussed timing of epidural and can happen at her request. Admit labs and NST pending. (2) Supervision of elderly multigravida: Plan: As above. Qualifiers: Trimester: third trimester Qualified Code(s): O09.523 - Supervision of elderly multigravida, third trimester
[2025-02-04] MEDS ORDERED: ACETAMINOPHEN 500 MG TABLET PO PRN ×2 (09:21)
[2025-02-04] MEDS ORDERED: OXYTOCIN 10 UNIT/ML VIAL IM PRN (09:21)
[2025-02-04] MEDS ORDERED: ONDANSETRON ODT 4 MG TABLET PO PRN (09:21)
[2025-02-04] MEDS ORDERED: TERBUTALINE 1 MG/ML VIAL SUBQ PRN (09:21)
[2025-02-04] MEDS ORDERED: CALCIUM CARBONATE CHEW 500 MG TABLET PO PRN (09:21)
[2025-02-04] MEDS ORDERED: AMPICILLIN 2 GM in SODIUM CHLORIDE 0.9% MINIBAG 100 ML IV ONE (09:21)
[2025-02-04] MEDS ORDERED: SODIUM CHLORIDE FLUSH 0.9% 10 ML SYRINGE IVP PRN (09:21)
[2025-02-04] MEDS ORDERED: hydrALAZINE INJ 20 MG/ML VIAL IVP PRN (09:21)
[2025-02-04] MEDS ORDERED: LABETALOL 20 MG/4 ML SYRINGE IVP PRN ×3 (09:21)
[2025-02-04] MEDS ORDERED: DOCUSATE SODIUM 100 MG CAPSULE PO PRN (09:21)
[2025-02-04] MEDS ORDERED: METOCLOPRAMIDE 10 MG TABLET PO PRN (09:21)
[2025-02-04 09:30] LABS: HCT - HEMATOCRIT 36.1 % (37.0-47.0); HGB - HEMOGLOBIN 12.5 g/dL (12.0-16.0); MEAN PLATELET VOLUME 10.0 fL (7.9-10.8); NRBC ABSOLUTE COUNT (AUTO) 0.00 x10^3/uL; NUCLEATED RED BLOOD CELLS AUTO 0.0 /100WBC; PLT - PLATELET COUNT 347 10^3/uL (130-450); RED CELL DISTRIBUTION WIDTH 13.6 % (12.0-15.0)
[2025-02-04] MEDS ORDERED: SODIUM CHLORIDE FLUSH 0.9% 10 ML SYRINGE IVP SCH (10:00)
--- NOTE | 2025-02-04 14:14 | PHARMACY PROGRESS NOTE ---
Best Possible Medication History Admit Date and Time: 02/04/25 0921 Home Medications Medication Instructions Recorded Confirmed Type vits no.126-ferrous fum 1 tab PO DAILY 02/04/25 History 28 mg iron-folic acid 800 mcg tablet (Classic ) aspirin 81 mg tablet,delayed 81 mg PO DAILY 10/07/24 1 History release (Adult Low Dose Aspirin) Processed by: Pharmacy (Medication reconciliation completed by Pharmacist [facility]) Medications reviewed in ED?: No Medication History completed: Yes Patient Interview: Completed [facility] Statement: As the person ultimately responsible for medication therapy, providers are able to order a medication from an existing home medication list in [facility] via the "Reconcile Routine" prior to Confirmation of that medication by technical support specialist. Such practice is discouraged except when the physician, in their clinical judgment, deems that a medical need exists for a medication without regard to previous use.
--- NOTE | 2025-02-04 14:51 | ANESTHESIA PROCEDURE NOTE ---
Pre-Anesthesia VS, & Labs Diagnosis Surgical Diagnosis:: term labor pain Procedure Procedure: epidural for Vitals Vital Signs: Temp Pulse Resp BP 36.9 C 91 16 130/76 02/04/25 09:22 02/04/25 09:22 02/04/25 09:22 02/04/25 09:22 NPO Last Fluid Intake: t/o day Last Food Intake: lunch Is Patient ?: Yes Lab Results Current Lab Results: Laboratory Tests 02/04/25 09:05: WBC 13.1 H, RBC 4.12 L, Hgb 12.5, Hct 36.1 L, MCV 87.6, MCH 30.3, MCHC 34.6, RDW 13.6, Plt Count 347, MPV 10.0, Neut # (Auto) 9.7 H, Lymph # (Auto) 1.8, [place] # (Auto) 1.3 H, Eos # (Auto) 0.2, Baso # (Auto) 0.1, Absolute Nucleated RBC 0.00, Nucleated RBC % 0.0, Blood Type A POSITIVE, Antibody Screen NEGATIVE Lab results reviewed: Yes 02/04/25 09:05 Meds/Allgy Home Medications Ambulatory Orders Medication Instructions Recorded Confirmed vits no.126-ferrous fum 1 tab PO DAILY 02/04/25 28 mg iron-folic acid 800 mcg tablet (Classic ) aspirin 81 mg tablet,delayed 81 mg PO DAILY 10/07/24 1 release (Adult Low Dose Aspirin) Allergies Allergies Allergy/AdvReac Type Severity Reaction Status Date / Time No Known Drug Allergies Allergy Verified 02/03/25 09:15 PFSH Active Problems All Active Problems (Updated 02/04/25 @ 08:46 by Oscar Fritz MD) 40 weeks gestation of (Acute) Supervision of elderly multigravida (Acute) Positive test (Acute) Family history of breast cancer (Acute) Medical History Medical History (Updated 02/04/25 @ 08:46 by Oscar Fritz MD) Encounter for other specified screening Encounter for supervision of normal , unspecified, first trimester URI (upper respiratory infection) Post depression Family History Family History (Updated 06/17/24 @ 11:29 by Aishwarya Ortez RN) Mother Heart attack High blood pressure Grandfather Heart attack Lung cancer Grandmother Heart attack Breast cancer Aunt Diabetes Obesity Arthritis Father Arthritis Social History Social History (Updated 12/04/24 @ 14:02 by Oscar Fritz MD) Smoking Status: Never smoker Second hand tobacco smoke exposure: No Do you dip or chew tobacco?: No Do you vape?: No Patient requests smoking cessation consult: No Initiate information on smoking cessation: No Living arrangement: At home Living Condition: With spouse/s.o. 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[place] Retired: No POLST Patient has POLST: No Anesthesia Exam (Expanded) Exam General: Alert, Oriented x3, Cooperative and Mild distress Dental: WNL Mouth Openin Fingerbreadth Neck Mobility: Normal Mallampati classification: II Thyromental Distance: 4-6 cm Respiratory: Lungs clear, Normal breath sounds and No respiratory distress Cardiovascular: Regular rate Neurological: Normal speech Mental/Cognitive Status: Alert/Oriented X3 and Normal for patient Cognitive Status: Within normal limits Exam Exam Vital Signs: Vital Signs x48h Temp Pulse Resp BP 02/04/25 09:22 36.9 C 91 16 130/76 Plan Problem List (1) 40 weeks gestation of : Plan: Plan for labor induction. Cervix too high to check easily. Will start with at least 1 dose of misoprostol followed by hopeful amniotomy or oxytocin. Plan on vaginal delivery. Discussed timing of epidural and can happen at her request. Admit labs and NST pending. (2) Supervision of elderly multigravida: Plan: As above. Qualifiers: Trimester: third trimester Qualified Code(s): O09.523 - Supervision of elderly multigravida, third trimester Plan Anesthesia Type: Epidural Consent for Procedure(s) Verified and Reviewed: Yes Code Status: Attempt Resuscitation ASA Classification ASA classification: 2-Mild systemic disease Is this case an emergency?: No
[2025-02-04] MEDS: LACTATED RINGERS 1,000 ML IV PRN (15:43)
[2025-02-04] MEDS: AMPICILLIN 2 GM in SODIUM CHLORIDE 0.9% MINIBAG 100 ML IV ONE (15:45)
[2025-02-04] MEDS: LACTATED RINGERS 500 ML IV ONE (16:54)
[2025-02-04] MEDS ORDERED: ROPIVACAINE 0.2% 200 MG/100 ML BAG EP ONE (17:25)
[2025-02-04] MEDS ORDERED: METOCLOPRAMIDE 10 MG/2 ML VIAL IVP PRN (18:23)
[2025-02-04] MEDS ORDERED: NALOXONE 0.4 MG/ML VIAL IVP PRN (18:23)
[2025-02-04] MEDS ORDERED: NALBUPHINE 10 MG/ML AMP IVP PRN (18:23)
[2025-02-04] MEDS ORDERED: LIDOCAINE 2%-EPI 1:100000 20 ML MDV ONE (18:34)
--- NOTE | 2025-02-04 19:05 | PROVIDER PROGRESS NOTE ---
Labor Progress Note Labor Progress Note Labor Progress Note/Additional Text: Doing very well. Patient was reexamined with increased pressure and found to have a posterior lip. Chris every 2 to 3 minutes, category 1 tracing with frequent early decelerations. Plan for delivery soon.
[2025-02-04] MEDS: AMPICILLIN 1 GM in SODIUM CHLORIDE 0.9% MINIBAG 100 ML IV SCH (19:15)
[2025-02-04] MEDS: OXYTOCIN/SODIUM CHLORIDE 500 ML IV PRN (21:46)
--- NOTE | 2025-02-04 22:19 | PROVIDER PROGRESS NOTE ---
Labor Progress Note Labor Progress Note Labor Progress Note/Additional Text: Patient pushing well, but contractions are spaced out and hypotonic, so oxytocin was started. heart tracing overall reassuring, no decelerations with pushing. Anticipate .
--- NOTE | 2025-02-04 23:49 | PROVIDER PROGRESS NOTE ---
Labor Progress Note Labor Progress Note Labor Progress Note/Additional Text: Patient requested to take a break, took a nap during her rest. Continued to have category 1 tracing with early decelerations. Still shayla every 2 to 4 minutes. Concern for hypotonic uterine contractions, so we began pushing aga in after placing IUPC. This is longer than expected for pushing, however we will continue with expectant management.
[2025-02-05] MEDS: ROPIVACAINE 0.2% 200 MG/100 ML BAG EP PRN (00:25)
--- NOTE | 2025-02-05 02:47 | PROVIDER PROGRESS NOTE ---
Labor Progress Note Monitoring Strip Review: positive Category I Vaginal Exam Dilation (in cm): 10 Effacement (%): 100 Station: -3 Labor Progress Note Labor Progress Note/Additional Text: 150 beats per baseline, moderate variability, accelerations present, early decelerations. Category 1. Despite taking a break and increase the oxytocin, patient still remains 0 station. She does not make good descent when pushing, but resumes previous station as soon as she stops. Oxytocin increased, now to 12. Fabi units still an adequate, but patient requesting a section due to lack of energy and prolonged second stage. We discussed the option of taking a break and increasing oxytocin further, but patient declines. She would like to proceed with section. section was recommended. Risks, benefits and alternatives were discussed including but not limited to infection, bleeding that may require blood products or hysterectomy for life saving measures, injury to surrounding organs including but not limited to bowel, bladder, ureters, tubes and ovaries and/or the baby. Should injury occur it could require longer/additional surgery to repair. The patient stated understanding and desired to proceed. All questions were answered posed by patient.
[2025-02-05] MEDS ORDERED: OXYTOCIN/SODIUM CHLORIDE 500 ML IV ONE (03:15)
[2025-02-05] MEDS ORDERED: fentaNYL 100 MCG/2 ML VIAL ONE (03:15)
[2025-02-05] MEDS ORDERED: SODIUM CHLORIDE 0.9% 10 ML VIAL ONE ×2 (03:17→04:31)
[2025-02-05] MEDS ORDERED: ePHEDrine 50 MG/ML VIAL IVP ONE ×2 (03:17→05:50)
[2025-02-05] MEDS ORDERED: PHENYLEPHRINE HCL 0.5 MG/5 ML AMPULE ONE ×2 (03:17→05:58)
[2025-02-05] MEDS ORDERED: ONDANSETRON 4 MG/2 ML VIAL ONE (03:54)
[2025-02-05] MEDS ORDERED: ONDANSETRON 4 MG/2 ML VIAL IVP PRN (04:10)
[2025-02-05] MEDS ORDERED: fentaNYL 100 MCG/2 ML VIAL IVP PRN (04:10)
[2025-02-05] MEDS ORDERED: HYDROmorphone 0.5 MG/0.5 ML SYRINGE IVP PRN (04:10)
[2025-02-05] MEDS ORDERED: ATROPINE ABBOJECT 1 MG/10 ML SYRINGE IVP PRN (04:10)
[2025-02-05] MEDS ORDERED: ePHEDrine 50 MG/ML VIAL IVP PRN (04:10)
[2025-02-05] MEDS ORDERED: NALOXONE 0.4 MG/ML VIAL IVP PRN (04:10)
[2025-02-05] MEDS ORDERED: METOCLOPRAMIDE 10 MG/2 ML VIAL IVP PRN (04:10)
[2025-02-05] MEDS ORDERED: MORPHINE 2 MG/ML CARPUJECT IVP PRN (04:10)
[2025-02-05] MEDS ORDERED: ACETAMINOPHEN 1,000 MG/100 ML 1,000 MG/100 ML BAG IV ONE (04:22)
[2025-02-05] MEDS ORDERED: KETOROLAC 30 MG/ML VIAL ONE (04:22)
[2025-02-05] MEDS ORDERED: ROPIVACAINE 0.5% PF 20 ML VIAL ONE (04:29)
[2025-02-05] MEDS ORDERED: DEXAMETHASONE 10 MG/ML VIAL ONE (04:29)
[2025-02-05] MEDS ORDERED: LACTATED RINGERS 1,000 ML IV SCH ×2 (05:00→06:00)
[2025-02-05] MEDS ORDERED: ONDANSETRON ODT 4 MG TABLET TL PRN (05:01)
--- NOTE | 2025-02-05 05:06 | OPERATIVE REPORT ---
Operative Report General Admit Date: 02/04/25 Procedure Data: Operation Date: 02/05/25 03:30 Proposed Procedures p Section(Bilateral) - Oscar Fritz MD Pre-Op Diagnosis: arrest of descent 40 weeks gestation Advanced maternal age Actual Procedures p Section(Not Applicable) - Oscar Fritz MD Post-Op Diagnosis: Same Uterine leiomyoma Delivery of live bueno Status post primary low-transverse section Anesthesia Type Spinal Case Staff Anesthesia Provider: Reginaldo Hunt Assisting Provider: Marilyn Canales Case Times Procedure Start: 02/05/25 03:55 Procedure End: 02/05/25 04:53 Time out: 02/05/25 03:53 Pre-Op Diagnosis: Arrest of descent Post Op Diagnosis: Same, delivery of live bueno , s/p primary low- transverse cs Procedure Note Estimated Blood Loss (ml): 850 Output, Urine Amount (ml): 200 Drain/Tube Type: Lane drain Pathology: None Findings: Multiple intramural and subserosal fibroids including a large approximately 7 cm intramural fibroid in the anterior lower uterus. Complications: None Other Other Information/Narrative: Patient is a 44-year-old G4, P1 who presented at 40 weeks 2 days gestation for induction of labor. She received 2 doses of misoprostol and continued to contract on her own. She had spontaneous rupture of membranes with clear fluid. She progressed to complete and started pushing. After an hour of pushing, she was not making much dissent and contractions spaced out, so oxytocin was started for hypotonic uterine contractions. She continued to labor then got tired and took a break. We did place an IUPC to major contractions. We continued increased oxytocin as we reinitiated pushing. After additional 2 hours of pushing, she still did not make significant descent and requested a section. For prolonged second stage and maternal exhaustion, section was recommended. Risks, benefits and alternatives were discussed including but not limited to infection, bleeding that may require blood products or hysterectomy for life saving measures, injury to surrounding organs including but not limited to bowel, bladder, ureters, tubes and ovaries and/or the baby. Should injury occur it could require longer/additional surgery to repair. The patient stated understanding and desired to proceed. All questions were answered posed by patient. Prior to being taken to the OR, 2 g cefazolin and 500 mg azithromycin were administered. The patient was taken to the operating room where regional anesthesia was found to be adequate. She was then prepared and draped in the usual sterile fashion with abdominal and vaginal prep's and was placed in the dorsal supine position with a leftward tilt displacing the uterus. Lindquist was draining to gravity. SCDs were on bilateral lower extremities. Time out was taken. A pfannenstiel skin incision was then made with the scalpel and carried through to the underlying layer of fascia. The fascia was incised in the midline and the incision extended laterally with the Monet scissors. The superior aspect of the facial incision was then grasped with the Lazarus clamps, elevated and the underlying rectus muscles dissected off sharply. Attention was then turned to the inferior aspect of this incision which in a similar fashion was grasped, elevated with the Lazarus clamps and the rectus muscle dissected off sharply. The rectus muscles were in the midline. The peritoneum identified, and entered blutly. The peritoneal incision was then extended superiorly and inferiorly with good visualization of the bladder. The bladder blade was inserted. The vesicouterine peritoneum was identified, grasped with the pick- ups, and entered sharply with Metzenbaum scissors. This incision was then extended laterally and the bladder flap created digitally. The bladder blade was reinserted. The lower uterine segment was identified and incised in a transverse fashion with the scalpel. The uterine incision was then extended bluntly laterally. She still had a moderate amount of clear fluid. The bladder blade was removed. The fetus was in a cephalic presentation. The infants head delivered atraumatically. The anterior shoulders were delivered followed by the posterior shoulders then the remainder of the body. The infants mouth and nose were bulb suctioned. The umbilical cord was clamped times two and cut. The was handed to the pediatric team. The placenta was removed with gentle traction. Oxytocin was added to the IV fluid and was allowed to run freely. The uterus was exteriorized and cleared of all clots and debris. The uterine incision was inspected and found to be without any extensions and was repaired with 0 Vicryl in a running, locked fashion. 2 additional [id number] stitches were required for hemostasis. A second imbricating layer was performed. Surgicel was placed over the incision for mild oozing bladder reflection. Upon inspection, the repaired hysterotomy was found to be hemostatic. The uterus was firm and returned to the abdomen. The gutters were cleared of all clots and debris. The muscle layer was examined and found to be hemostatic. The fascia was reapproximated with 0 Vicryl in a running fashion. The subcutaneous tissue was closed with 2-0 Vicryl. The skin was closed in a subcuticular fashion with 4-0 Monocryl. The patient tolerated the procedure well. Sponge, lap and needle counts were correct times three. She stayed in the operating room for a tap block then was taken to the recovery room in stable condition. I appreciate the assistance of MISTY Squires during this procedure, and the assistance in retraction, visualization, dissection, and overall assistance during the case were instrumental to the patient's wellbeing. APGARs: 8/9 weight: Pending
[2025-02-05] MEDS: ceFAZolin (2G) 2 GM in SODIUM CHLORIDE 0.9% MINIBAG 100 ML IV ONE (05:09)
[2025-02-05] MEDS: AZITHROMYCIN INJ 500 MG in SODIUM CHLORIDE 0.9% 250 ML IV ONE (05:09)
[2025-02-05] MEDS: OXYTOCIN/SODIUM CHLORIDE 500 ML IV PRN (05:09)
--- NOTE | 2025-02-05 05:26 | ANESTHESIA POST OP EVALUATION ---
Anesthesia Post Eval Post Anesthesia Eval Vitals: Last Vital Signs Temp 37.8 C 02/04/25 22:23 Pulse 91 02/04/25 09:22 Resp 16 02/04/25 22:23 BP 99/49 L 02/04/25 22:23 Pulse Ox 99 02/04/25 22:23 CV Function Including HR & BP: Stable Pain Control: Satisfactory Nausea & Vomiting: Negative Mental Status: Baseline Respiratory Status: Airway Patent Hydration Status: Satisfactory Anesthesia Complications: None
[2025-02-05] MEDS: ePHEDrine 50 MG/ML VIAL IVP PRN (05:30)
[2025-02-05] MEDS: METHYLERGONOVINE 0.2 MG/ML VIAL IM PRN (06:01)
[2025-02-05] MEDS: ONDANSETRON 4 MG/2 ML VIAL IVP PRN (06:04)
[2025-02-05] MEDS: CARBOPROST TROMETHAMINE 250 MCG/ML VIAL IM PRN (06:15)
[2025-02-05] MEDS ORDERED: SODIUM CHLORIDE 0.9% 1,000 ML ONE (06:19)
[2025-02-05] MEDS ORDERED: SODIUM CHLORIDE 0.9% 500 ML IV ONE ×2 (06:20→06:33)
--- NOTE | 2025-02-05 06:22 | MISCELLANEOUS PROVIDER NOTE ---
Miscellaneous Provider Note - Note: Called shortly after leaving OB unit after checking pt out for post op recovery note. Pt c/o feeling very weak, HR elevated, BP down. Responds to ephedrine briefly. MD Fritz notified after repeated low BPs, high HR. 1g TXA hung per MD order in OB. Bolus running. ED and Lam at bedside with lab.
[2025-02-05 06:27] LABS: HCT - HEMATOCRIT 27.0 % (37.0-47.0); HGB - HEMOGLOBIN 9.1 g/dL (12.0-16.0); MEAN PLATELET VOLUME 10.1 fL (7.9-10.8); PLT - PLATELET COUNT 300 10^3/uL (130-450); RED CELL DISTRIBUTION WIDTH 13.5 % (12.0-15.0)
[2025-02-05 06:29] LABS: ABNORMAL LYMPHS % (MANUAL) 0 %; BASOPHILS # (MANUAL) 0.0 10^3/uL (0-0.1); EOSINOPHILS # (MANUAL) 0.0 10^3/uL (0-0.7)
[2025-02-05] MEDS: TRANEXAMIC ACID IN NACL 1,000 MG/100 ML BAG IV PRN (06:30)
[2025-02-05 06:46] LABS: INR 2.1 (0.8-1.2); PT - PROTHROMBIN TIME 22.7 secs (9.9-12.6)
[2025-02-05 06:48] LABS: BAND NEUTROPHILS % (MANUAL) 13 %; LYMPHOCYTES # (MANUAL) 1.7 10^3/uL (1.5-3.5); LYMPHOCYTES % (MANUAL) 5 %; MONOCYTES # (MANUAL) 2.1 10^3/uL (0.0-1.0); NEUTROPHILS # (MANUAL) 31.0 10^3/uL (1.5-6.6); PLATELET ESTIMATE, MANUAL NORMAL (130-450,000) (NORMAL); PLATELET MORPHOLOGY NORMAL APPEARANCE (NORMAL); RBC MORPHOLOGY (MULTIPLE) NORMAL APPEARANCE (NORMAL); WBC MORPHOLOGY (MULTIPLE) 1+ TOXIC GRANULATION (NORMAL)
[2025-02-05 06:49] LABS: ALT ALANINE AMINOTRANSFERASE 5.0 IU/L (10-60); AST ASPARTATE AMINOTRANSFERASE 11.0 IU/L (10-42); BUN - BLOOD UREA NITROGEN 12.0 mg/dL (6-20); CARBON DIOXIDE - CO2 19.0 mmol/L (21-32); CREATININE 0.8 mg/dL (0.6-1.3); GFR - MDRD 78.0 (>89)
--- NOTE | 2025-02-05 06:55 | MISCELLANEOUS PROVIDER NOTE ---
Miscellaneous Provider Note - Note: At approximately 0600 hrs. staff assist was called to patient's room. Myself and multiple ER nurses responded to staff assist, room 2105. On arrival to the room patient was pale, complaining of lightheadedness. Blood pressure at that time was 65/35. It was explained me that the patient was a recent postoperative patient via with Dr. Fritz in the last half hour to an hour. Patient appeared to be having increasing vaginal bleeding at bedside. I was notified that Dr. Fritz was on his way to patient's room after being called back by OB staff. I recommended pressure bagging 1 L of fluid and recommended having second liter of fluid to be ready for rapid infusion. The LEARNING MANAGER who had been involved in patient's OR case came and administered phenylephrine which did have a modest improvement in her blood pressure. Initially patient appeared to have good response to 1 unit of fluid. Nursing asked if I would like to have additional unit Pitocin infused, which I agreed with and asked them to infuse. I called blood bank and asked for 2 units of O- blood. Patient was placed in Trendelenburg position. TXA was called for. At this juncture Dr. Oscar Fritz arrived, and assumed command of patient's resuscitation. I briefly updated of patient about the situation at bedside. At this juncture patient had received 2 L of fluid, and was beginning to receive first unit of PRBC. Blood pressures were improved at this juncture. I departed back to the ER after conferring with Dr. Fritz. Further details next nation of this resuscitation are included in Dr. Oscar Fritz documentation of this event.
[2025-02-05 07:16] LABS: HCT - HEMATOCRIT 32.5 % (37.0-47.0); HGB - HEMOGLOBIN 10.8 g/dL (12.0-16.0)
[2025-02-05] MEDS: oxyCODONE 5 MG TABLET PO PRN ×2 (08:14→13:30)
[2025-02-05] MEDS ORDERED: FAMOTIDINE 20 MG/2 ML VIAL IVP SCH (09:00)
--- NOTE | 2025-02-05 09:06 | PROVIDER PROGRESS NOTE ---
Current Medications Current Medications Current Medications: Current Medications Generic Name Dose Route Start Last Admin Trade Name Freq PRN Reason Stop Dose Admin Acetaminophen 1,000 mg 02/04/25 09:21 Acetaminophen 500 Mg Tablet PO Q8H PRN Mild Pain or Fever>38C(100.4F) Acetaminophen 1,000 mg 02/04/25 09:21 Acetaminophen 500 Mg Tablet PO Q8HR PRN Mild Pain or Fever>38C(100.4F) Acetaminophen 1,000 mg 02/05/25 06:00 Acetaminophen 500 Mg Tablet PO Q6HR GENNARO Calcium Carbonate/Glycine 1,000 mg 02/04/25 09:21 Calcium Carbonate Chew 500 Mg Tablet PO Q6HR PRN Heartburn Carboprost Tromethamine 250 mcg 02/04/25 09:21 Carboprost Tromethamine 250 Mcg/Ml Vial IM .ONCE PRN Hemorrhage Diphenhydramine HCl 25 mg 02/04/25 09:21 Diphenhydramine Inj 50 Mg/Ml Vial IVP Q6H PRN Allergy Symptoms Diphenhydramine HCl 12.5 - 25 mg 02/04/25 18:23 Diphenhydramine Inj 50 Mg/Ml Vial IVP Q6HR PRN ITCHING Docusate Sodium 200 mg 02/04/25 09:21 Docusate Sodium 100 Mg Capsule PO BID PRN Constipation Docusate Sodium 100 mg 02/05/25 09:00 Docusate Sodium 100 Mg Capsule PO DAILY [facility] Ephedrine Sulfate 5 mg 02/04/25 18:23 02/05/25 05:45 Ephedrine 50 Mg/Ml Vial IVP 10 mg Q5M PRN Administration For SBP<100;give until SBP>100 Famotidine 20 mg 02/05/25 09:00 Famotidine 20 Mg/2 Ml Vial IVP DAILY [facility] Fentanyl 50 mcg 02/04/25 09:21 Fentanyl 100 Mcg/2 Ml Vial IVP Q1H PRN Severe Pain (score 7-10) Hydralazine HCl 5 - 10 mg 02/04/25 09:21 Hydralazine Inj 20 Mg/Ml Vial IVP Q20M PRN SBP> or= 160 OR DBP> or= 110 Protocol Ampicillin Sodium 1 gm/ Sodium 100 mls @ 200 mls/hr 02/04/25 14:00 02/04/25 23:24 Chloride IV Infused Q4H [facility] Infusion Lactated Ringer's 500 mls @ 999 mls/hr 02/04/25 09:21 02/05/25 07:03 Lr IV 999 mls/hr PRN PRN Administration PER PHYSICIAN ORDER Oxytocin/Sodium Chloride 500 mls @ 999 mls/hr 02/04/25 09:21 02/05/25 02:38 Pitocin/Sodium Chloride IV 0 milliunit/min PRN PRN 0 mls/hr POST- HEMORR PREVENTION Titration Protocol 999 MILLIUNIT/MIN Tranexamic Acid 1,000 mg in 100 mls @ 600 mls/hr 02/04/25 09:21 Tranexamic 1,000 Mg/100ml-Nacl IV Q30M PRN EBL >1200mL and within 3hr Ropivacaine 200 mg in 100 mls @ 0 mls/hr 02/04/25 18:23 02/05/25 05:10 Naropin 0.2% EP Infused PRN PRN Infusion PAIN Protocol Per Protocol Lactated Ringer's 1,000 mls @ 125 mls/hr 02/05/25 03:00 Lr IV .Q8H [facility] Oxytocin/Sodium Chloride 500 mls @ 999 mls/hr 02/05/25 05:01 Pitocin/Sodium Chloride IV PRN PRN POST- HEMORR PREVENTION Protocol 999 MILLIUNIT/MIN Lactated Ringer's 1,000 mls @ 100 mls/hr 02/05/25 06:00 Lr IV .Q10H [facility] Ibuprofen 600 mg 02/06/25 06:00 Ibuprofen 600 Mg Tablet PO Q6HR [facility] Ketorolac Tromethamine 30 mg 02/05/25 12:00 Ketorolac 30 Mg/Ml Vial IVP 02/06/25 00:01 Q6HR [facility] Labetalol HCl 20 mg 02/04/25 09:21 Labetalol 20 Mg/4 Ml Syringe IVP .ONCE PRN SBP> or= 160 OR DBP> or= 110 Protocol Labetalol HCl 20 - 40 mg 02/04/25 09:21 Labetalol 20 Mg/4 Ml Syringe IVP Q10M PRN SBP> or= 160 OR DBP> or= 110 Protocol Labetalol HCl 20 - 80 mg 02/04/25 09:21 Labetalol 20 Mg/4 Ml Syringe IVP Q10M PRN SBP> or= 160 OR DBP> or= 110 Protocol Lidocaine HCl 20 ml 02/04/25 09:21 Lidocaine 1% 20 Ml Mdv ID 02/07/25 09:21 .ONCE PRN PERINEAL REPAIR Methylergonovine Maleate 0.2 mg 02/04/25 09:21 Methylergonovine 0.2 Mg/Ml Vial IM .ONCE PRN Hemorrhage Metoclopramide HCl 5 mg 02/04/25 09:21 Metoclopramide 10 Mg Tablet PO Q6HR PRN Nausea / Vomiting Metoclopramide HCl 10 mg 02/04/25 18:23 Metoclopramide 10 Mg/2 Ml Vial IVP Q6HR PRN Nausea / Vomiting Misoprostol 25 mcg 02/04/25 08:45 02/04/25 13:53 Misoprostol 100 Mcg Tablet VG 25 mcg Q4H GENNARO Administration Misoprostol 600 mcg 02/04/25 09:21 Misoprostol 200 Mcg Tablet BC .ONCE PRN Hemorrhage Misoprostol 800 mcg 02/04/25 09:21 Misoprostol 200 Mcg Tablet PA .ONCE PRN Hemorrhage Nalbuphine HCl 2.5 - 5 mg 02/04/25 18:23 Nalbuphine 10 Mg/Ml Amp IVP Q4H PRN ITCHING Naloxone HCl 0.1 mg 02/04/25 18:23 Naloxone 0.4 Mg/Ml Vial IVP Q2M PRN RR<8 Nifedipine 10 - 20 mg 02/04/25 09:21 Nifedipine 10 Mg Capsule PO Q20M PRN SBP> or= 160 OR DBP> or= 110 Protocol Ondansetron HCl 4 mg 02/04/25 09:21 Ondansetron Odt 4 Mg Tablet PO Q4HR PRN Nausea / Vomiting Ondansetron HCl 4 mg 02/04/25 18:23 02/05/25 06:04 Ondansetron 4 Mg/2 Ml Vial IVP 4 mg Q6HR PRN Administration Nausea / Vomiting Ondansetron HCl 4 mg 02/05/25 05:01 Ondansetron Odt 4 Mg Tablet TL Q4HR PRN Nausea / Vomiting Oxycodone HCl 5 mg 02/05/25 05:01 02/05/25 08:14 Oxycodone 5 Mg Tablet PO 5 mg Q4HR PRN Administration Moderate Pain (Level 4-6) Oxytocin 10 unit 02/04/25 09:21 Oxytocin 10 Unit/Ml Vial IM .ONCE PRN Step One if no IV access. Simethicone 80 mg 02/05/25 05:01 Simethicone Chew 80 Mg Tablet PO TID PRN Gas Sodium Chloride 10 ml 02/04/25 09:21 Sodium Chloride Flush 0.9% 10 Ml Syringe IVP PRN PRN NEEDED PER PROVIDER ORDERS Sodium Chloride 10 ml 02/04/25 10:00 Sodium Chloride Flush 0.9% 10 Ml Syringe IVP Q8H GENNARO Terbutaline Sulfate 0.25 mg 02/04/25 09:21 Terbutaline 1 Mg/Ml Vial SUBQ .ONCE PRN Tachystole Objective Vital Signs/Intake & Output Vital Signs: Vital Signs x48h Temp Pulse Pulse Resp BP BP Pulse Ox 02/05/25 07:48 107 H 16 107/62 98 02/05/25 07:45 36.5 C 111 H 101/65 97 02/05/25 07:40 36.5 C 19 101/65 98 02/05/25 07:38 111 H 17 101/65 98 02/05/25 07:29 36.4 C L 112 H 17 97/62 99 02/05/25 07:28 115 H 31 H 97/62 98 02/05/25 07:18 110 H 15 107/69 98 02/05/25 07:08 105 H 16 125/63 99 02/05/25 06:59 96 15 107/66 100 02/05/25 06:59 94 15 107/66 100 02/05/25 06:57 36.4 C L 104 H 16 96/59 L 100 02/05/25 06:57 110 H 15 100 02/05/25 06:53 02/05/25 06:49 104 H 16 96 02/05/25 06:45 103 H 15 96/59 L 100 02/05/25 06:43 108 H 15 110/94 H 100 02/05/25 06:41 107 H 12 90/61 02/05/25 06:39 110 H 15 88/64 L 02/05/25 06:37 115 H 15 96/51 L 100 02/05/25 06:35 119 H 16 95/79 97 02/05/25 06:32 112 H 18 79/58 L 100 02/05/25 06:24 119 H 16 57/40 L 99 02/05/25 06:21 127 H 13 63/41 L 100 02/05/25 06:21 126 H 11 L 63/41 L 96 02/05/25 06:20 126 H 13 69/41 L 55 L 02/05/25 06:17 121 H 13 107/76 93 02/05/25 06:15 89 14 86/57 L 100 02/05/25 06:12 117 H 13 85/71 L 100 02/05/25 06:10 128 H 12 68/46 L 100 02/05/25 06:06 134 H 12 95/53 L 100 02/05/25 06:04 124 H 15 83/37 L 95 02/05/25 06:00 135 H 8 L 71/46 L 99 02/05/25 06:00 130 H 14 71/46 L 100 02/05/25 05:55 132 H 12 65/42 L 100 02/05/25 05:50 132 H 13 78/43 L 100 02/05/25 05:45 137 H 15 80/48 L 99 02/05/25 05:40 122 H 13 82/47 L 02/05/25 05:38 120 H 12 76/49 L 02/05/25 05:38 126 H 18 76/49 L 02/05/25 05:35 127 H 15 90/54 L 02/05/25 05:30 117 H 17 81/47 L 02/05/25 05:25 110 H 14 75/49 L 02/05/25 05:25 110 H 15 75/49 L 02/05/25 05:24 114 H 18 86/40 L 02/05/25 05:22 115 H 17 68/45 L 02/05/25 05:22 118 H 14 02/05/25 05:18 115 H 18 71/41 L 02/05/25 05:17 118 H 19 73/46 L 02/05/25 05:15 36.6 C 121 H 25 H 69/39 L 100 O2 Flow Rate 02/05/25 07:48 02/05/25 07:45 02/05/25 07:40 02/05/25 07:38 02/05/25 07:29 02/05/25 07:28 02/05/25 07:18 02/05/25 07:08 02/05/25 06:59 02/05/25 06:59 02/05/25 06:57 02/05/25 06:57 02/05/25 06:53 15 02/05/25 06:49 02/05/25 06:45 02/05/25 06:43 02/05/25 06:41 02/05/25 06:39 02/05/25 06:37 02/05/25 06:35 02/05/25 06:32 02/05/25 06:24 02/05/25 06:21 02/05/25 06:21 02/05/25 06:20 02/05/25 06:17 02/05/25 06:15 02/05/25 06:12 02/05/25 06:10 02/05/25 06:06 02/05/25 06:04 02/05/25 06:00 02/05/25 06:00 15 02/05/25 05:55 02/05/25 05:50 02/05/25 05:45 02/05/25 05:40 02/05/25 05:38 02/05/25 05:38 02/05/25 05:35 02/05/25 05:30 02/05/25 05:25 02/05/25 05:25 02/05/25 05:24 02/05/25 05:22 02/05/25 05:22 02/05/25 05:18 02/05/25 05:17 02/05/25 05:15 Intake & Output: Intake & Output 02/02/25 02/03/25 02/04/25 02/05/25 23:59 23:59 23:59 23:59 Intake Total 2101 / 2101 4261 / 4261 Output Total 400 / 400 740 / 740 Balance 1701 / 1701 3521 / 3521 Weight (kg) 221 lb Lab Results 02/06/25 06:10 02/05/25 18:41 Other Labs: Lab Results x24hrs 02/05/25 02/05/25 02/05/25 Range/Units 07:03 06:32 06:05 WBC 34.8 H (4.8-10.8) x10^3/uL RBC 3.02 L (4.20-5.40) 10^6/uL Hgb 10.8 L 9.1 L (12.0-16.0) g/dL Hct 32.5 L 27.0 L (37.0-47.0) % MCV 89.4 (81.0-99.0) fL MCH 30.1 (27.0-31.0) pg MCHC 33.7 (32.0-36.0) g/dL RDW 13.5 (12.0-15.0) % Plt Count 300 (130-450) 10^3/uL MPV 10.1 (7.9-10.8) fL Neut # (Auto) Not Reportable (1.5-6.6) 10^3/uL Lymph # (Auto) Not Reportable (1.5-3.5) 10^3/uL [place] # (Auto) Not Reportable (0.0-1.0) 10^3/uL Eos # (Auto) Not Reportable (0.0-0.7) 10^3/uL Baso # (Auto) Not Reportable (0.0-0.1) 10^3/uL Absolute Nucleated RBC Not Reportable x10^3/uL Total Counted 100 Band Neuts % (Manual) 13 H (0 - 10) % Abnorm Lymph % (Manual) 0 % Nucleated RBC % Not Reportable /100WBC Neutrophils # (Manual) 31.0 H (1.5-6.6) 10^3/uL Lymphocytes # (Manual) 1.7 (1.5-3.5) 10^3/uL Monocytes # (Manual) 2.1 H (0.0-1.0) 10^3/uL Eosinophils # (Manual) 0.0 (0-0.7) 10^3/uL Basophils # (Manual) 0.0 (0-0.1) 10^3/uL Differential Comment MANUAL DIFFERENTIAL WBC Morphology 1+ TOXIC GRANULATION (NORMAL) Platelet Estimate NORMAL (130-450,000) (NORMAL) Platelet Morphology NORMAL APPEARANCE (NORMAL) RBC Morph Micro Appear NORMAL APPEARANCE (NORMAL) PT 22.7 H (9.9-12.6) secs INR 2.1 H (0.8-1.2) APTT 72.9 H (24.9-33.3) secs Sodium 133 L (135-145) mmol/L Potassium 3.5 (3.5-4.5) mmol/L Chloride 105 (101-111) mmol/L Carbon Dioxide 19 L (21-32) mmol/L Anion Gap 9.0 (6-13) BUN 12 (6-20) mg/dL Creatinine 0.8 (0.6-1.3) mg/dL Estimated GFR (MDRD) 78 L (>89) Glucose 125 H (74-104) mg/dL Calcium 7.4 L (8.5-10.3) mg/dL Total Bilirubin 0.7 (0.2-1.0) mg/dL AST 11 (10-42) IU/L ALT 5 L (10-60) IU/L Alkaline Phosphatase 81 (42-121) IU/L Total Protein 4.6 L (6.4-8.9) g/dL Albumin 2.4 L (3.2-5.5) g/dL Globulin 2.2 (2.1-4.2) g/dL Albumin/Globulin Ratio 1.1 (1.0-2.2) Blood Type Antibody Screen Crossmatch IS Only 02/04/25 Range/Units 09:05 WBC 13.1 H (4.8-10.8) x10^3/uL RBC 4.12 L (4.20-5.40) 10^6/uL Hgb 12.5 (12.0-16.0) g/dL Hct 36.1 L (37.0-47.0) % MCV 87.6 (81.0-99.0) fL MCH 30.3 (27.0-31.0) pg MCHC 34.6 (32.0-36.0) g/dL RDW 13.6 (12.0-15.0) % Plt Count 347 (130-450) 10^3/uL MPV 10.0 (7.9-10.8) fL Neut # (Auto) 9.7 H (1.5-6.6) 10^3/uL Lymph # (Auto) 1.8 (1.5-3.5) 10^3/uL [place] # (Auto) 1.3 H (0.0-1.0) 10^3/uL Eos # (Auto) 0.2 (0.0-0.7) 10^3/uL Baso # (Auto) 0.1 (0.0-0.1) 10^3/uL Absolute Nucleated RBC 0.00 x10^3/uL Total Counted Band Neuts % (Manual) (0 - 10) % Abnorm Lymph % (Manual) % Nucleated RBC % 0.0 /100WBC Neutrophils # (Manual) (1.5-6.6) 10^3/uL Lymphocytes # (Manual) (1.5-3.5) 10^3/uL Monocytes # (Manual) (0.0-1.0) 10^3/uL Eosinophils # (Manual) (0-0.7) 10^3/uL Basophils # (Manual) (0-0.1) 10^3/uL Differential Comment WBC Morphology (NORMAL) Platelet Estimate (NORMAL) Platelet Morphology (NORMAL) RBC Morph Micro Appear (NORMAL) PT (9.9-12.6) secs INR (0.8-1.2) APTT (24.9-33.3) secs Sodium (135-145) mmol/L Potassium (3.5-4.5) mmol/L Chloride (101-111) mmol/L Carbon Dioxide (21-32) mmol/L Anion Gap (6-13) BUN (6-20) mg/dL Creatinine (0.6-1.3) mg/dL Estimated GFR (MDRD) (>89) Glucose (74-104) mg/dL Calcium (8.5-10.3) mg/dL Total Bilirubin (0.2-1.0) mg/dL AST (10-42) IU/L ALT (10-60) IU/L Alkaline Phosphatase (42-121) IU/L Total Protein (6.4-8.9) g/dL Albumin (3.2-5.5) g/dL Globulin (2.1-4.2) g/dL Albumin/Globulin Ratio (1.0-2.2) Blood Type A POSITIVE Antibody Screen NEGATIVE Crossmatch IS Only See Detail Assessment/Plan Problem List (1) Acute blood loss anemia: Impression: Patient was recovering after a section, but after about an hour back in the room, began becoming hypotensive and tachycardic and received ephedrine after the OR.. I was alerted by the nursing staff and return to evaluate the patient. Upon my arrival, the rapid response had been called and the ED physician and multiple staff members were assisting the patient. She was given multiple uterotonics over her assessment including oxytocin, Methergine, Hemabate, as well as tranexamic acid. Due to her hypotension and receiving boluses, we were concerned about acute blood loss anemia although she had little vaginal bleeding. Because of this, I did a fundal assessment and bimanual massage and noted a copious amount of blood and clot in the uterus, trapped until expelling. She had approximately 2 L of blood in the uterus at that time. I placed a Aixa device, but due to the large fibroid, did not feel that it was working effectively as very little blood came out. Upon its removal, additional clots were removed. Attempt to place a Bakri balloon, but again could not get past the fibroid, so I continue with the uterotonic medications and fundal massage is until bleeding slowed. Over the course the morning, she had approximately 4 L of blood loss. See resuscitation notes from nursing. I do not feel this is an intra-abdominal process as the blood inside her uterus would have explained her symptoms and was improving after blood, fluid bolus, and medications. Due to her hemodynamic instability, she did end up with 4 units of packed red blood cells, 2 units of FFP, 2 units of cryoprecipitate. We did activate a massive transfusion protocol due to brisk bleeding and vital instability. Her bleeding did slow significantly although was intermittent throughout the morning. She was alert throughout, although was tired and nauseated to varying degrees intermittently. Patient was breast-feeding and although weak and tired, became much more stable. Repeat H&H was scheduled for later this morning. Dr. Kim did take over care later, please see her notes for further details.
[2025-02-05] MEDS: fentaNYL 100 MCG/2 ML VIAL IVP PRN (10:04)
[2025-02-05] MEDS: LACTATED RINGERS 1,000 ML IV SCH (10:09)
[2025-02-05] MEDS ORDERED: METHYLERGONOVINE 0.2 MG/ML VIAL ONE (10:17)
[2025-02-05] MEDS: METHYLERGONOVINE 0.2 MG/ML VIAL IM ONE (10:29)
--- NOTE | 2025-02-05 10:46 | PROVIDER PROGRESS NOTE ---
Subjective Prog Note Date Prog Note Date: 02/05/25 Prog Note Time: 18:08 Subjective Subjective: Greer was evaluated multiple times at bedside throughout the day. I was notified this morning by RN of increased bleeding with fundal check. They had expressed 149cc. I saw Greer at bedside and performed bimanual exam with removal of some clots, and uterus was somewhat boggy (total blood loss the RN fundal rub and the clots I expressed was 294cc). I recommended that we try to place the Aixa again and she did agree to proceed. Aixa was placed without difficulty, with approximately 10-15cm of blood in the tubing after suction was turned on. She was started on low dose pitocin again and then given a dose of IM methergine. Also started Ancef 2g q 8 hours x 24hrs/ The Aixa remained in place for a little over 2 hours with minimal output, and was the suction was then turned off and balloon deflated. With no bleeding around the device, the Aixa was removed by the RN approximately 1hour later. Total blood loss since delivery 4070cc. Prior to my evaluation this AM, she had received 4units of blood in addition to 2 units of cyroprecipiate and FFP. She has been stable throughout the day with regards to BP, HR, and UOP. UOP was low this morning but has since improved. Hgb stable. I did discuss with Greer this morning that if she were to have ongoing bleeding, would need to consider additional interventions. Depending on urgency, this could mean transfer to a facility with IR if she was stable versus hysterectomy. Plan to continue low dose pitocin x 24 hrs as well as scheduled methergine. Repeat CBC with a CMP this evening. Can consider removing gallardo this evening if UOP remains adequate, or keep overnight if she prefers to be able to rest. Niecy Kim MD Current Medications Current Medications Current Medications: Current Medications Generic Name Dose Route Start Last Admin Trade Name Freq PRN Reason Stop Dose Admin Acetaminophen 1,000 mg 02/04/25 09:21 Acetaminophen 500 Mg Tablet PO Q8H PRN Mild Pain or Fever>38C(100.4F) Acetaminophen 1,000 mg 02/04/25 09:21 Acetaminophen 500 Mg Tablet PO Q8HR PRN Mild Pain or Fever>38C(100.4F) Acetaminophen 1,000 mg 02/05/25 06:00 Acetaminophen 500 Mg Tablet PO Q6HR GENNARO Calcium Carbonate/Glycine 1,000 mg 02/04/25 09:21 Calcium Carbonate Chew 500 Mg Tablet PO Q6HR PRN Heartburn Diphenhydramine HCl 25 mg 02/04/25 09:21 Diphenhydramine Inj 50 Mg/Ml Vial IVP Q6H PRN Allergy Symptoms Diphenhydramine HCl 12.5 - 25 mg 02/04/25 18:23 Diphenhydramine Inj 50 Mg/Ml Vial IVP Q6HR PRN ITCHING Docusate Sodium 200 mg 02/04/25 09:21 Docusate Sodium 100 Mg Capsule PO BID PRN Constipation Docusate Sodium 100 mg 02/05/25 09:00 Docusate Sodium 100 Mg Capsule PO DAILY [facility] Ephedrine Sulfate 5 mg 02/04/25 18:23 02/05/25 05:45 Ephedrine 50 Mg/Ml Vial IVP 10 mg Q5M PRN Administration For SBP<100;give until SBP>100 Famotidine 20 mg 02/05/25 09:00 Famotidine 20 Mg/2 Ml Vial IVP DAILY [facility] Fentanyl 50 mcg 02/04/25 09:21 02/05/25 10:04 Fentanyl 100 Mcg/2 Ml Vial IVP 50 mcg Q1H PRN Administration Severe Pain (score 7-10) Hydralazine HCl 5 - 10 mg 02/04/25 09:21 Hydralazine Inj 20 Mg/Ml Vial IVP Q20M PRN SBP> or= 160 OR DBP> or= 110 Protocol Ampicillin Sodium 1 gm/ Sodium 100 mls @ 200 mls/hr 02/04/25 14:00 02/04/25 23:24 Chloride IV Infused Q4H GENNARO Infusion Lactated Ringer's 500 mls @ 999 mls/hr 02/04/25 09:21 02/05/25 09:12 Lr IV 999 mls/hr PRN PRN Administration PER PHYSICIAN ORDER Oxytocin/Sodium Chloride 500 mls @ 999 mls/hr 02/04/25 09:21 02/05/25 02:38 Pitocin/Sodium Chloride IV 0 milliunit/min PRN PRN 0 mls/hr POST- HEMORR PREVENTION Titration Protocol 999 MILLIUNIT/MIN Ropivacaine 200 mg in 100 mls @ 0 mls/hr 02/04/25 18:23 02/05/25 05:10 Naropin 0.2% EP Infused PRN PRN Infusion PAIN Protocol Per Protocol Lactated Ringer's 1,000 mls @ 125 mls/hr 02/05/25 03:00 02/05/25 10:09 Lr IV 125 mls/hr .Q8H GENNARO Administration Oxytocin/Sodium Chloride 500 mls @ 999 mls/hr 02/05/25 05:01 02/05/25 10:24 Pitocin/Sodium Chloride IV 999 milliunit/min PRN PRN 999 mls/hr POST- HEMORR PREVENTION Administration Protocol 999 MILLIUNIT/MIN Lactated Ringer's 1,000 mls @ 100 mls/hr 02/05/25 06:00 Lr IV .Q10H GENNARO Cefazolin Sodium 2 gm/ Sodium 100 mls @ 200 mls/hr 02/05/25 10:42 Chloride IV 02/05/25 11:11 Q8HR STA Ibuprofen 600 mg 02/06/25 06:00 Ibuprofen 600 Mg Tablet PO Q6HR GENNARO Ketorolac Tromethamine 30 mg 02/05/25 12:00 Ketorolac 30 Mg/Ml Vial IVP 02/06/25 00:01 Q6HR GENNARO Labetalol HCl 20 mg 02/04/25 09:21 Labetalol 20 Mg/4 Ml Syringe IVP .ONCE PRN SBP> or= 160 OR DBP> or= 110 Protocol Labetalol HCl 20 - 40 mg 02/04/25 09:21 Labetalol 20 Mg/4 Ml Syringe IVP Q10M PRN SBP> or= 160 OR DBP> or= 110 Protocol Labetalol HCl 20 - 80 mg 02/04/25 09:21 Labetalol 20 Mg/4 Ml Syringe IVP Q10M PRN SBP> or= 160 OR DBP> or= 110 Protocol Lidocaine HCl 20 ml 02/04/25 09:21 Lidocaine 1% 20 Ml Mdv ID 02/07/25 09:21 .ONCE PRN PERINEAL REPAIR Methylergonovine Maleate 0.2 mg 02/05/25 11:00 Methylergonovine 0.2 Mg/Ml Vial IM 02/05/25 23:01 Q4H GENNARO Metoclopramide HCl 5 mg 02/04/25 09:21 Metoclopramide 10 Mg Tablet PO Q6HR PRN Nausea / Vomiting Metoclopramide HCl 10 mg 02/04/25 18:23 Metoclopramide 10 Mg/2 Ml Vial IVP Q6HR PRN Nausea / Vomiting Misoprostol 25 mcg 02/04/25 08:45 02/04/25 13:53 Misoprostol 100 Mcg Tablet VG 25 mcg Q4H GENNARO Administration Misoprostol 600 mcg 02/04/25 09:21 Misoprostol 200 Mcg Tablet BC .ONCE PRN Hemorrhage Misoprostol 800 mcg 02/04/25 09:21 Misoprostol 200 Mcg Tablet MT .ONCE PRN Hemorrhage Nalbuphine HCl 2.5 - 5 mg 02/04/25 18:23 Nalbuphine 10 Mg/Ml Amp IVP Q4H PRN ITCHING Naloxone HCl 0.1 mg 02/04/25 18:23 Naloxone 0.4 Mg/Ml Vial IVP Q2M PRN RR<8 Nifedipine 10 - 20 mg 02/04/25 09:21 Nifedipine 10 Mg Capsule PO Q20M PRN SBP> or= 160 OR DBP> or= 110 Protocol Ondansetron HCl 4 mg 02/04/25 09:21 Ondansetron Odt 4 Mg Tablet PO Q4HR PRN Nausea / Vomiting Ondansetron HCl 4 mg 02/04/25 18:23 02/05/25 06:04 Ondansetron 4 Mg/2 Ml Vial IVP 4 mg Q6HR PRN Administration Nausea / Vomiting Ondansetron HCl 4 mg 02/05/25 05:01 Ondansetron Odt 4 Mg Tablet TL Q4HR PRN Nausea / Vomiting Oxycodone HCl 0 mg 02/05/25 10:40 Oxycodone 5 Mg Tablet PO Q4HR PRN PAIN 5-7 Oxytocin 10 unit 02/04/25 09:21 Oxytocin 10 Unit/Ml Vial IM .ONCE PRN Step One if no IV access. Simethicone 80 mg 02/05/25 05:01 Simethicone Chew 80 Mg Tablet PO TID PRN Gas Sodium Chloride 10 ml 02/04/25 09:21 Sodium Chloride Flush 0.9% 10 Ml Syringe IVP PRN PRN NEEDED PER PROVIDER ORDERS Sodium Chloride 10 ml 02/04/25 10:00 Sodium Chloride Flush 0.9% 10 Ml Syringe IVP Q8H GENNARO Terbutaline Sulfate 0.25 mg 02/04/25 09:21 Terbutaline 1 Mg/Ml Vial SUBQ .ONCE PRN Tachystole Objective Vital Signs/Intake & Output Vital Signs: Vital Signs x48h Temp Pulse Pulse Resp BP BP Pulse Ox 02/05/25 07:48 107 H 16 107/62 98 02/05/25 07:45 97.7 F 111 H 101/65 97 02/05/25 07:40 97.7 F 19 101/65 98 02/05/25 07:38 111 H 17 101/65 98 02/05/25 07:29 97.5 F L 112 H 17 97/62 99 02/05/25 07:28 115 H 31 H 97/62 98 02/05/25 07:18 110 H 15 107/69 98 02/05/25 07:08 105 H 16 125/63 99 02/05/25 06:59 96 15 107/66 100 02/05/25 06:59 94 15 107/66 100 02/05/25 06:57 97.5 F L 104 H 16 96/59 L 100 02/05/25 06:57 110 H 15 100 02/05/25 06:53 02/05/25 06:49 104 H 16 96 02/05/25 06:45 103 H 15 96/59 L 100 02/05/25 06:43 108 H 15 110/94 H 100 02/05/25 06:41 107 H 12 90/61 02/05/25 06:39 110 H 15 88/64 L 02/05/25 06:37 115 H 15 96/51 L 100 02/05/25 06:35 119 H 16 95/79 97 02/05/25 06:32 112 H 18 79/58 L 100 02/05/25 06:24 119 H 16 57/40 L 99 02/05/25 06:21 127 H 13 63/41 L 100 02/05/25 06:21 126 H 11 L 63/41 L 96 02/05/25 06:20 126 H 13 69/41 L 55 L 02/05/25 06:17 121 H 13 107/76 93 02/05/25 06:15 89 14 86/57 L 100 02/05/25 06:12 117 H 13 85/71 L 100 02/05/25 06:10 128 H 12 68/46 L 100 02/05/25 06:06 134 H 12 95/53 L 100 02/05/25 06:04 124 H 15 83/37 L 95 02/05/25 06:00 135 H 8 L 71/46 L 99 02/05/25 06:00 130 H 14 71/46 L 100 02/05/25 05:55 132 H 12 65/42 L 100 02/05/25 05:50 132 H 13 78/43 L 100 02/05/25 05:45 137 H 15 80/48 L 99 02/05/25 05:40 122 H 13 82/47 L 02/05/25 05:38 120 H 12 76/49 L 02/05/25 05:38 126 H 18 76/49 L 02/05/25 05:35 127 H 15 90/54 L 02/05/25 05:30 117 H 17 81/47 L 02/05/25 05:25 110 H 14 75/49 L 02/05/25 05:25 110 H 15 75/49 L 02/05/25 05:24 114 H 18 86/40 L 02/05/25 05:22 115 H 17 68/45 L 02/05/25 05:22 118 H 14 02/05/25 05:18 115 H 18 71/41 L 02/05/25 05:17 118 H 19 73/46 L 02/05/25 05:15 97.9 F 121 H 25 H 69/39 L 100 O2 Flow Rate 02/05/25 07:48 02/05/25 07:45 02/05/25 07:40 02/05/25 07:38 02/05/25 07:29 02/05/25 07:28 02/05/25 07:18 02/05/25 07:08 02/05/25 06:59 02/05/25 06:59 02/05/25 06:57 02/05/25 06:57 02/05/25 06:53 15 02/05/25 06:49 02/05/25 06:45 02/05/25 06:43 02/05/25 06:41 02/05/25 06:39 02/05/25 06:37 02/05/25 06:35 02/05/25 06:32 02/05/25 06:24 02/05/25 06:21 02/05/25 06:21 02/05/25 06:20 02/05/25 06:17 02/05/25 06:15 02/05/25 06:12 02/05/25 06:10 02/05/25 06:06 02/05/25 06:04 02/05/25 06:00 02/05/25 06:00 15 02/05/25 05:55 02/05/25 05:50 02/05/25 05:45 02/05/25 05:40 02/05/25 05:38 02/05/25 05:38 02/05/25 05:35 02/05/25 05:30 02/05/25 05:25 02/05/25 05:25 02/05/25 05:24 02/05/25 05:22 02/05/25 05:22 02/05/25 05:18 02/05/25 05:17 02/05/25 05:15 Intake & Output: Intake & Output 02/02/25 02/03/25 02/04/25 02/05/25 23:59 23:59 23:59 23:59 Intake Total 2101 / 2101 05869 / 98979 Output Total 400 / 400 4869 / 4869 Balance 1701 / 1701 5282 / 5282 Weight (kg) 221 lb Lab Results 02/05/25 11:37 02/05/25 06:05 Other Labs: Lab Results x24hrs 02/05/25 02/05/25 02/05/25 Range/Units 07:03 06:32 06:05 WBC 34.8 H (4.8-10.8) x10^3/uL RBC 3.02 L (4.20-5.40) 10^6/uL Hgb 10.8 L 9.1 L (12.0-16.0) g/dL Hct 32.5 L 27.0 L (37.0-47.0) % MCV 89.4 (81.0-99.0) fL MCH 30.1 (27.0-31.0) pg MCHC 33.7 (32.0-36.0) g/dL RDW 13.5 (12.0-15.0) % Plt Count 300 (130-450) 10^3/uL MPV 10.1 (7.9-10.8) fL Neut # (Auto) Not Reportable Lymph # (Auto) Not Reportable [place] # (Auto) Not Reportable Eos # (Auto) Not Reportable Baso # (Auto) Not Reportable Absolute Nucleated RBC Not Reportable Total Counted 100 Band Neuts % (Manual) 13 H (0 - 10) % Abnorm Lymph % (Manual) 0 % Nucleated RBC % Not Reportable Neutrophils # (Manual) 31.0 H (1.5-6.6) 10^3/uL Lymphocytes # (Manual) 1.7 (1.5-3.5) 10^3/uL Monocytes # (Manual) 2.1 H (0.0-1.0) 10^3/uL Eosinophils # (Manual) 0.0 (0-0.7) 10^3/uL Basophils # (Manual) 0.0 (0-0.1) 10^3/uL Differential Comment MANUAL DIFFERENTIAL WBC Morphology 1+ TOXIC GRANULATION (NORMAL) Platelet Estimate NORMAL (130-450,000) (NORMAL) Platelet Morphology NORMAL APPEARANCE (NORMAL) RBC Morph Micro Appear NORMAL APPEARANCE (NORMAL) PT 22.7 H (9.9-12.6) secs INR 2.1 H (0.8-1.2) APTT 72.9 H (24.9-33.3) secs Sodium 133 L (135-145) mmol/L Potassium 3.5 (3.5-4.5) mmol/L Chloride 105 (101-111) mmol/L Carbon Dioxide 19 L (21-32) mmol/L Anion Gap 9.0 (6-13) BUN 12 (6-20) mg/dL Creatinine 0.8 (0.6-1.3) mg/dL Estimated GFR (MDRD) 78 L (>89) Glucose 125 H (74-104) mg/dL Calcium 7.4 L (8.5-10.3) mg/dL Total Bilirubin 0.7 (0.2-1.0) mg/dL AST 11 (10-42) IU/L ALT 5 L (10-60) IU/L Alkaline Phosphatase 81 (42-121) IU/L Total Protein 4.6 L (6.4-8.9) g/dL Albumin 2.4 L (3.2-5.5) g/dL Globulin 2.2 (2.1-4.2) g/dL Albumin/Globulin Ratio 1.1 (1.0-2.2) Blood Type Antibody Screen Crossmatch IS Only 02/04/25 Range/Units 09:05 WBC (4.8-10.8) x10^3/uL RBC (4.20-5.40) 10^6/uL Hgb (12.0-16.0) g/dL Hct (37.0-47.0) % MCV (81.0-99.0) fL MCH (27.0-31.0) pg MCHC (32.0-36.0) g/dL RDW (12.0-15.0) % Plt Count (130-450) 10^3/uL MPV (7.9-10.8) fL Neut # (Auto) Lymph # (Auto) [place] # (Auto) Eos # (Auto) Baso # (Auto) Absolute Nucleated RBC Total Counted Band Neuts % (Manual) (0 - 10) % Abnorm Lymph % (Manual) % Nucleated RBC % Neutrophils # (Manual) (1.5-6.6) 10^3/uL Lymphocytes # (Manual) (1.5-3.5) 10^3/uL Monocytes # (Manual) (0.0-1.0) 10^3/uL Eosinophils # (Manual) (0-0.7) 10^3/uL Basophils # (Manual) (0-0.1) 10^3/uL Differential Comment WBC Morphology (NORMAL) Platelet Estimate (NORMAL) Platelet Morphology (NORMAL) RBC Morph Micro Appear (NORMAL) PT (9.9-12.6) secs INR (0.8-1.2) APTT (24.9-33.3) secs Sodium (135-145) mmol/L Potassium (3.5-4.5) mmol/L Chloride (101-111) mmol/L Carbon Dioxide (21-32) mmol/L Anion Gap (6-13) BUN (6-20) mg/dL Creatinine (0.6-1.3) mg/dL Estimated GFR (MDRD) (>89) Glucose (74-104) mg/dL Calcium (8.5-10.3) mg/dL Total Bilirubin (0.2-1.0) mg/dL AST (10-42) IU/L ALT (10-60) IU/L Alkaline Phosphatase (42-121) IU/L Total Protein (6.4-8.9) g/dL Albumin (3.2-5.5) g/dL Globulin (2.1-4.2) g/dL Albumin/Globulin Ratio (1.0-2.2) Blood Type A POSITIVE Antibody Screen NEGATIVE Crossmatch IS Only See Detail Assessment/Plan Problem List (1) Status post delivery: Impression: Plan as noted above. (2) hemorrhage: (3) Acute blood loss anemia:
[2025-02-05] MEDS: ceFAZolin (2G) 2 GM in SODIUM CHLORIDE 0.9% 100ML 100 ML IV STA (11:05)
[2025-02-05 11:46] LABS: HCT - HEMATOCRIT 28.8 % (37.0-47.0); HGB - HEMOGLOBIN 10.0 g/dL (12.0-16.0)
[2025-02-05 12:23] LABS: INR 1.1 (0.8-1.2); PT - PROTHROMBIN TIME 12.7 secs (9.9-12.6)
[2025-02-05] MEDS: METHYLERGONOVINE 0.2 MG/ML VIAL IM SCH (14:22)
[2025-02-05] MEDS: ACETAMINOPHEN 500 MG TABLET PO SCH (18:10)
[2025-02-05] MEDS: KETOROLAC 30 MG/ML VIAL IVP SCH (18:11)
[2025-02-05 18:46] LABS: HCT - HEMATOCRIT 25.5 % (37.0-47.0); HGB - HEMOGLOBIN 8.9 g/dL (12.0-16.0); MEAN PLATELET VOLUME 10.0 fL (7.9-10.8); PLT - PLATELET COUNT 196.0 10^3/uL (130-450); RED CELL DISTRIBUTION WIDTH 14.8 % (12.0-15.0)
[2025-02-05 19:03] LABS: ALT ALANINE AMINOTRANSFERASE 7.0 IU/L (10-60); AST ASPARTATE AMINOTRANSFERASE 12.0 IU/L (10-42); BUN - BLOOD UREA NITROGEN 11.0 mg/dL (6-20); CARBON DIOXIDE - CO2 21.0 mmol/L (21-32); CREATININE 0.5 mg/dL (0.6-1.3); GFR - MDRD 135.0 (>89)
[2025-02-05] MEDS: SIMETHICONE CHEW 80 MG TABLET PO PRN (20:49)
[2025-02-05] MEDS: ceFAZolin (2G) 2 GM in SODIUM CHLORIDE 0.9% MINIBAG 100 ML IV SCH (21:45)
[2025-02-05] MEDS ORDERED: ceFAZolin (2G) 2 GM in SODIUM CHLORIDE 0.9% MINIBAG 100 ML IV SCH (23:00)
[2025-02-06] MEDS: IBUPROFEN 600 MG TABLET PO SCH (06:00)
[2025-02-06 06:27] LABS: HCT - HEMATOCRIT 22.1 % (37.0-47.0); HGB - HEMOGLOBIN 7.6 g/dL (12.0-16.0); MEAN PLATELET VOLUME 10.2 fL (7.9-10.8); PLT - PLATELET COUNT 183 10^3/uL (130-450); RED CELL DISTRIBUTION WIDTH 15.5 % (12.0-15.0)
[2025-02-06 06:29] LABS: ABNORMAL LYMPHS % (MANUAL) 0 %; BASOPHILS # (MANUAL) 0.0 10^3/uL (0-0.1); EOSINOPHILS # (MANUAL) 0.0 10^3/uL (0-0.7)
[2025-02-06 06:43] LABS: BAND NEUTROPHILS % (MANUAL) 4 %; LYMPHOCYTES # (MANUAL) 2.7 10^3/uL (1.5-3.5); LYMPHOCYTES % (MANUAL) 11 %; MONOCYTES # (MANUAL) 1.0 10^3/uL (0.0-1.0); NEUTROPHILS # (MANUAL) 20.7 10^3/uL (1.5-6.6); PLATELET ESTIMATE, MANUAL NORMAL (130-450,000) (NORMAL); PLATELET MORPHOLOGY NORMAL APPEARANCE (NORMAL); RBC MORPHOLOGY (MULTIPLE) NORMAL APPEARANCE (NORMAL); WBC MORPHOLOGY (MULTIPLE) 1+ TOXIC GRANULATION (NORMAL)
[2025-02-06] MEDS: DOCUSATE SODIUM 100 MG CAPSULE PO SCH (08:41)
--- NOTE | 2025-02-06 16:08 | PROVIDER PROGRESS NOTE ---
Subjective Prog Note Date Prog Note Date: 02/06/25 Prog Note Time: 16:21 Subjective Subjective: Reports feeling better this morning. Feeling sore. Lindquist catheter in place. Feels ready to get up and move today. She is , reports good amount of colostrum. Bleeding seems normal now. Feels more swollen today, more so in her hands. No CP, SOB. Denies dizziness. Current Medications Current Medications Current Medications: Current Medications Generic Name Dose Route Start Last Admin Trade Name Freq PRN Reason Stop Dose Admin Acetaminophen 1,000 mg 02/05/25 06:00 02/06/25 15:48 Acetaminophen 500 Mg Tablet PO 1,000 mg Q6HR GENNARO Administration Calcium Carbonate/Glycine 1,000 mg 02/04/25 09:21 Calcium Carbonate Chew 500 Mg Tablet PO Q6HR PRN Heartburn Diphenhydramine HCl 12.5 - 25 mg 02/04/25 18:23 Diphenhydramine Inj 50 Mg/Ml Vial IVP Q6HR PRN ITCHING Docusate Sodium 100 mg 02/05/25 09:00 02/06/25 08:41 Docusate Sodium 100 Mg Capsule PO 100 mg DAILY GENNARO Administration Ephedrine Sulfate 5 mg 02/04/25 18:23 02/05/25 05:45 Ephedrine 50 Mg/Ml Vial IVP 10 mg Q5M PRN Administration For SBP<100;give until SBP>100 Famotidine 20 mg 02/05/25 09:00 Famotidine 20 Mg/2 Ml Vial IVP DAILY [facility] Fentanyl 50 mcg 02/04/25 09:21 02/05/25 10:04 Fentanyl 100 Mcg/2 Ml Vial IVP 50 mcg Q1H PRN Administration Severe Pain (score 7-10) Hydralazine HCl 5 - 10 mg 02/04/25 09:21 Hydralazine Inj 20 Mg/Ml Vial IVP Q20M PRN SBP> or= 160 OR DBP> or= 110 Protocol Lactated Ringer's 500 mls @ 999 mls/hr 02/04/25 09:21 02/05/25 10:54 Lr IV 50 mls/hr PRN PRN Administration PER PHYSICIAN ORDER Lactated Ringer's 1,000 mls @ 125 mls/hr 02/05/25 03:00 02/05/25 20:52 Lr IV 125 mls/hr .Q8H GENNARO Administration Oxytocin/Sodium Chloride 500 mls @ 999 mls/hr 02/05/25 05:01 02/05/25 14:00 Pitocin/Sodium Chloride IV Infused PRN PRN Titration POST- HEMORR PREVENTION Protocol 999 MILLIUNIT/MIN Lactated Ringer's 1,000 mls @ 100 mls/hr 02/05/25 06:00 Lr IV .Q10H GENNARO Cefazolin Sodium 2 gm/ Sodium 100 mls @ 200 mls/hr 02/05/25 22:00 02/06/25 05:54 Chloride IV 02/06/25 21:59 200 mls/hr Q8H GENNARO Administration Ibuprofen 600 mg 02/06/25 06:00 02/06/25 11:43 Ibuprofen 600 Mg Tablet PO 600 mg Q6HR GENNARO Administration Labetalol HCl 20 mg 02/04/25 09:21 Labetalol 20 Mg/4 Ml Syringe IVP .ONCE PRN SBP> or= 160 OR DBP> or= 110 Protocol Labetalol HCl 20 - 40 mg 02/04/25 09:21 Labetalol 20 Mg/4 Ml Syringe IVP Q10M PRN SBP> or= 160 OR DBP> or= 110 Protocol Labetalol HCl 20 - 80 mg 02/04/25 09:21 Labetalol 20 Mg/4 Ml Syringe IVP Q10M PRN SBP> or= 160 OR DBP> or= 110 Protocol Lidocaine HCl 20 ml 02/04/25 09:21 Lidocaine 1% 20 Ml Mdv ID 02/07/25 09:21 .ONCE PRN PERINEAL REPAIR Metoclopramide HCl 5 mg 02/04/25 09:21 Metoclopramide 10 Mg Tablet PO Q6HR PRN Nausea / Vomiting Metoclopramide HCl 10 mg 02/04/25 18:23 Metoclopramide 10 Mg/2 Ml Vial IVP Q6HR PRN Nausea / Vomiting Misoprostol 600 mcg 02/04/25 09:21 Misoprostol 200 Mcg Tablet BC .ONCE PRN Hemorrhage Misoprostol 800 mcg 02/04/25 09:21 Misoprostol 200 Mcg Tablet VT .ONCE PRN Hemorrhage Nalbuphine HCl 2.5 - 5 mg 02/04/25 18:23 Nalbuphine 10 Mg/Ml Amp IVP Q4H PRN ITCHING Naloxone HCl 0.1 mg 02/04/25 18:23 Naloxone 0.4 Mg/Ml Vial IVP Q2M PRN RR<8 Nifedipine 10 - 20 mg 02/04/25 09:21 Nifedipine 10 Mg Capsule PO Q20M PRN SBP> or= 160 OR DBP> or= 110 Protocol Ondansetron HCl 4 mg 02/04/25 09:21 Ondansetron Odt 4 Mg Tablet PO Q4HR PRN Nausea / Vomiting Ondansetron HCl 4 mg 02/04/25 18:23 02/05/25 06:04 Ondansetron 4 Mg/2 Ml Vial IVP 4 mg Q6HR PRN Administration Nausea / Vomiting Ondansetron HCl 4 mg 02/05/25 05:01 Ondansetron Odt 4 Mg Tablet TL Q4HR PRN Nausea / Vomiting Oxycodone HCl 0 mg 02/05/25 10:40 02/06/25 16:07 Oxycodone 5 Mg Tablet PO 5 mg Q4HR PRN Administration PAIN 5-7 Oxytocin 10 unit 02/04/25 09:21 Oxytocin 10 Unit/Ml Vial IM .ONCE PRN Step One if no IV access. Simethicone 80 mg 02/05/25 05:01 02/06/25 15:48 Simethicone Chew 80 Mg Tablet PO 80 mg TID PRN Administration Gas Sodium Chloride 10 ml 02/04/25 09:21 Sodium Chloride Flush 0.9% 10 Ml Syringe IVP PRN PRN NEEDED PER PROVIDER ORDERS Objective Vital Signs/Intake & Output Vital Signs: Vital Signs x48h Temp Resp BP 02/06/25 11:45 97.7 F 17 114/63 Intake & Output: Intake & Output 02/03/25 02/04/25 02/05/25 02/06/25 23:59 23:59 23:59 23:59 Intake Total 2101 / 2101 87098 / 16244 500 / 500 Output Total 400 / 400 5431 / 5431 2315 / 2315 Balance 1701 / 1701 7640 / 7640 -1815 / -1815 Weight (kg) 221 lb Objective Comments/Other: Gen: NAD CV: RRR Resp: non labored respirations, CTAB Abd: soft, non-distended, appropriately TTP, bandage in place Ext: 1+ LE edema, SCDs in place, no evidence of VTE Lindquist with clear yellow urine. Lab Results 02/06/25 06:10 02/05/25 18:41 Other Labs: Lab Results x24hrs 02/06/25 02/05/25 02/04/25 Range/Units 06:10 18:41 09:05 WBC 24.3 H 30.5 H (4.8-10.8) x10^3/uL RBC 2.51 L 2.97 L (4.20-5.40) 10^6/uL Hgb 7.6 L 8.9 L (12.0-16.0) g/dL Hct 22.1 L 25.5 L (37.0-47.0) % MCV 88.0 85.9 (81.0-99.0) fL MCH 30.3 30.0 (27.0-31.0) pg MCHC 34.4 34.9 (32.0-36.0) g/dL RDW 15.5 H 14.8 (12.0-15.0) % Plt Count 183 196 (130-450) 10^3/uL MPV 10.2 10.0 (7.9-10.8) fL Neut # (Auto) Not Reportable Lymph # (Auto) Not Reportable [place] # (Auto) Not Reportable Eos # (Auto) Not Reportable Baso # (Auto) Not Reportable Absolute Nucleated RBC Not Reportable Total Counted 100 Band Neuts % (Manual) 4 (0 - 10) % Abnorm Lymph % (Manual) 0 % Nucleated RBC % Not Reportable Neutrophils # (Manual) 20.7 H (1.5-6.6) 10^3/uL Lymphocytes # (Manual) 2.7 (1.5-3.5) 10^3/uL Monocytes # (Manual) 1.0 (0.0-1.0) 10^3/uL Eosinophils # (Manual) 0.0 (0-0.7) 10^3/uL Basophils # (Manual) 0.0 (0-0.1) 10^3/uL Differential Comment MANUAL DIFFERENTIAL WBC Morphology 1+ TOXIC GRANULATION (NORMAL) Platelet Estimate NORMAL (130-450,000) (NORMAL) Platelet Morphology NORMAL APPEARANCE (NORMAL) RBC Morph Micro Appear NORMAL APPEARANCE (NORMAL) Sodium 134 L (135-145) mmol/L Potassium 3.9 (3.5-4.5) mmol/L Chloride 109 (101-111) mmol/L Carbon Dioxide 21 (21-32) mmol/L Anion Gap 4.0 L (6-13) BUN 11 (6-20) mg/dL Creatinine 0.5 L (0.6-1.3) mg/dL Estimated GFR (MDRD) 135 (>89) Glucose 130 H (74-104) mg/dL Calcium 7.2 L (8.5-10.3) mg/dL Total Bilirubin 0.8 (0.2-1.0) mg/dL AST 12 (10-42) IU/L ALT 7 L (10-60) IU/L Alkaline Phosphatase 61 (42-121) IU/L Total Protein 4.5 L (6.4-8.9) g/dL Albumin 2.5 L (3.2-5.5) g/dL Globulin 2.0 L (2.1-4.2) g/dL Albumin/Globulin Ratio 1.3 (1.0-2.2) Blood Type A POSITIVE Antibody Screen NEGATIVE Crossmatch IS Only See Detail Assessment/Plan Problem List (1) Status post delivery: Impression: - Continue routine postoperative/ care. - Drop in Hgb this morning noted, low suspicion for intraabdominal process and lochia appropriate. Suspect equilibrating from large blood loss and fluids/blood given yesterday. Currently asymptomatic for anemia, will continue to monitor closely. Discussed possibility of additional blood transfusion if feeling symptomatic. Will repeat H/H in the AM. - Saline lock today - Encouraged ambulation today and we discussed optimization of pain control. - Discussed taking off bandage in the shower if she chooses to shower later today, otherwise can remove tomorrow. (2) Acute blood loss anemia: (3) hemorrhage:
[2025-02-07 09:14] LABS: HCT - HEMATOCRIT 21.6 % (37.0-47.0); HGB - HEMOGLOBIN 7.1 g/dL (12.0-16.0)
--- NOTE | 2025-02-07 21:15 | PROVIDER PROGRESS NOTE ---
Subjective Prog Note Date Prog Note Date: 02/07/25 Prog Note Time: 18:00 Subjective Pt reports feeling: Improved Subjective: walking in halls. felt ok this am but then better after 1 more unit of blood. Current Medications Current Medications Current Medications: Current Medications Generic Name Dose Route Start Last Admin Trade Name Freq PRN Reason Stop Dose Admin Acetaminophen 1,000 mg 02/05/25 06:00 02/07/25 17:59 Acetaminophen 500 Mg Tablet PO 1,000 mg Q6HR GENNARO Administration Calcium Carbonate/Glycine 1,000 mg 02/04/25 09:21 Calcium Carbonate Chew 500 Mg Tablet PO Q6HR PRN Heartburn Diphenhydramine HCl 12.5 - 25 mg 02/04/25 18:23 Diphenhydramine Inj 50 Mg/Ml Vial IVP Q6HR PRN ITCHING Docusate Sodium 100 mg 02/05/25 09:00 02/07/25 07:34 Docusate Sodium 100 Mg Capsule PO 100 mg DAILY GENNARO Administration Ephedrine Sulfate 5 mg 02/04/25 18:23 02/05/25 05:45 Ephedrine 50 Mg/Ml Vial IVP 10 mg Q5M PRN Administration For SBP<100;give until SBP>100 Famotidine 20 mg 02/05/25 09:00 Famotidine 20 Mg/2 Ml Vial IVP DAILY GENNARO Fentanyl 50 mcg 02/04/25 09:21 02/05/25 10:04 Fentanyl 100 Mcg/2 Ml Vial IVP 50 mcg Q1H PRN Administration Severe Pain (score 7-10) Hydralazine HCl 5 - 10 mg 02/04/25 09:21 Hydralazine Inj 20 Mg/Ml Vial IVP Q20M PRN SBP> or= 160 OR DBP> or= 110 Protocol Lactated Ringer's 500 mls @ 999 mls/hr 02/04/25 09:21 02/05/25 10:54 Lr IV 50 mls/hr PRN PRN Administration PER PHYSICIAN ORDER Lactated Ringer's 1,000 mls @ 125 mls/hr 02/05/25 03:00 02/05/25 20:52 Lr IV 125 mls/hr .Q8H GENNARO Administration Oxytocin/Sodium Chloride 500 mls @ 999 mls/hr 02/05/25 05:01 02/05/25 14:00 Pitocin/Sodium Chloride IV Infused PRN PRN Titration POST- HEMORR PREVENTION Protocol 999 MILLIUNIT/MIN Lactated Ringer's 1,000 mls @ 100 mls/hr 02/05/25 06:00 Lr IV .Q10H GENNARO Ibuprofen 600 mg 02/06/25 06:00 02/07/25 17:37 Ibuprofen 600 Mg Tablet PO 600 mg Q6HR GENNARO Administration Labetalol HCl 20 mg 02/04/25 09:21 Labetalol 20 Mg/4 Ml Syringe IVP .ONCE PRN SBP> or= 160 OR DBP> or= 110 Protocol Labetalol HCl 20 - 40 mg 02/04/25 09:21 Labetalol 20 Mg/4 Ml Syringe IVP Q10M PRN SBP> or= 160 OR DBP> or= 110 Protocol Labetalol HCl 20 - 80 mg 02/04/25 09:21 Labetalol 20 Mg/4 Ml Syringe IVP Q10M PRN SBP> or= 160 OR DBP> or= 110 Protocol Metoclopramide HCl 5 mg 02/04/25 09:21 Metoclopramide 10 Mg Tablet PO Q6HR PRN Nausea / Vomiting Metoclopramide HCl 10 mg 02/04/25 18:23 Metoclopramide 10 Mg/2 Ml Vial IVP Q6HR PRN Nausea / Vomiting Misoprostol 600 mcg 02/04/25 09:21 Misoprostol 200 Mcg Tablet BC .ONCE PRN Hemorrhage Misoprostol 800 mcg 02/04/25 09:21 Misoprostol 200 Mcg Tablet AK .ONCE PRN Hemorrhage Nalbuphine HCl 2.5 - 5 mg 02/04/25 18:23 Nalbuphine 10 Mg/Ml Amp IVP Q4H PRN ITCHING Naloxone HCl 0.1 mg 02/04/25 18:23 Naloxone 0.4 Mg/Ml Vial IVP Q2M PRN RR<8 Nifedipine 10 - 20 mg 02/04/25 09:21 Nifedipine 10 Mg Capsule PO Q20M PRN SBP> or= 160 OR DBP> or= 110 Protocol Ondansetron HCl 4 mg 02/04/25 09:21 Ondansetron Odt 4 Mg Tablet PO Q4HR PRN Nausea / Vomiting Ondansetron HCl 4 mg 02/04/25 18:23 02/05/25 06:04 Ondansetron 4 Mg/2 Ml Vial IVP 4 mg Q6HR PRN Administration Nausea / Vomiting Ondansetron HCl 4 mg 02/05/25 05:01 Ondansetron Odt 4 Mg Tablet TL Q4HR PRN Nausea / Vomiting Oxycodone HCl 0 mg 02/05/25 10:40 02/07/25 20:54 Oxycodone 5 Mg Tablet PO 5 mg Q4HR PRN Administration PAIN 5-7 Oxytocin 10 unit 02/04/25 09:21 Oxytocin 10 Unit/Ml Vial IM .ONCE PRN Step One if no IV access. Simethicone 80 mg 02/05/25 05:01 02/07/25 20:27 Simethicone Chew 80 Mg Tablet PO 80 mg TID PRN Administration Gas Sodium Chloride 10 ml 02/04/25 09:21 Sodium Chloride Flush 0.9% 10 Ml Syringe IVP PRN PRN NEEDED PER PROVIDER ORDERS Objective Vital Signs/Intake & Output Vital Signs: Vital Signs x48h Temp Pulse Resp BP Pulse Ox 02/07/25 14:51 37.1 C 101 H 16 110/70 98 Intake & Output: Intake & Output 02/04/25 02/05/25 02/06/25 02/07/25 23:59 23:59 23:59 23:59 Intake Total 2101 / 2101 53260 / 23586 600 / 600 300 / 300 Output Total 400 / 400 5431 / 5431 3941 / 3941 Balance 1701 / 1701 7640 / 7640 -3341 / -3341 300 / 300 Weight (kg) 221 lb Objective General Appearance: positive No acute distress and Alert Respiratory: positive No respiratory distress Lab Results 02/07/25 09:09 02/05/25 18:41 Other Labs: Lab Results x24hrs 02/07/25 02/04/25 Range/Units 09:09 09:05 Hgb 7.1 L (12.0-16.0) g/dL Hct 21.6 L (37.0-47.0) % Blood Type A POSITIVE Antibody Screen NEGATIVE Crossmatch IS Only See Detail Assessment/Plan Problem List (1) Status post delivery: Impression: plan for discharge tomorrow. (2) Acute blood loss anemia: Impression: another unit of blood given and patient feeling better. (3) hemorrhage: Impression: stable now
[2025-02-08 12:25] VITALS: BP 131/80; TEMP 97.9; O2SAT 98
--- NOTE | 2025-02-08 13:20 | Labor Flowsheet ---
Labor Flowsheet Datetime Report Generated by CPN: 02/08/2025 13:20 Datetime: 02/05/2025 03:19 UTERINE ACTIVITY Monitor Mode: Internal Frequency (min): 2-3 Quality: Moderate Duration (sec): 60-120 Pattern: Normal: <= 5 Contractions in 10 Minutes Resting Tone (Palpate): Relaxed Resting Tone IUP (mmHg): 20 Intensity IUP (mmHg): 30 ASSESSMENT A Monitor Mode: Telemetry FHR Baseline Rate : 150 Variability: Moderate 6-25 bpm Accelerations: 15X15 Decelerations: None Communication Comments: going to [place] Datetime: 02/05/2025 03:16 VITAL SIGNS NBP Sys/Yesika/Mean (mmHg): 107 : 86 : 90 Pulse: 107 LaborFlag: Labor Datetime: 02/05/2025 03:15 SpO2 (%): 97 Datetime: 02/05/2025 02:44 Pitocin Checklist: At Least 1 Acceleration of 15 bpm x 15 Seconds in 30 Minutes or Adequate Variability; No More than 1 Late Deceleration Occurred in Past 30 Minutes; No More than 2 Variable Decelerations > 60 Seconds in Duration and decreasing >60 bpm in 30 minutes; No More than 5 Uterine Contractions in 10 Minutes for any 20 Minute Interval; Uterus Palpates Soft between Contractions; IUPC Resting Tone less than 25 mmHg Datetime: 02/05/2025 02:38 MEDICATIONS Pitocin (milliunits): Discontinued Plan of Care: Plan of Care Discussed; C/S Delivery Datetime: 02/05/2025 02:29 Contraction Comments: pushing Datetime: 02/05/2025 02:26 PATIENT CARE Procedures: Bedside Ultrasound Done Datetime: 02/05/2025 02:19 COMMUNICATION Communication: Provider at Bedside Datetime: 02/05/2025 02:15 Pushing Position: Laboring Down Datetime: 02/05/2025 02:00 Temperature (C): 38.0 Pain Assessment Comments: Pt tired from pushing efforts Amniotic Fluid Color: Clear Pushing Progress: Descent with Pushing Datetime: 02/05/2025 01:50 Stage 2 Comments: tug of war Datetime: 02/05/2025 01:29 Patient Care Comments: high thrones, knees together heels apart Datetime: 02/05/2025 00:45 Hedrick Units (mmHg): 176 Datetime: 02/05/2025 00:29 Hedrick Units (mmHg): 165 MONTEVIDEO UNITS (Computed) Contractions in Ten Minutes: 5 IUPC Average Intensity: 60 IUPC Average Resting Tone: 20 Datetime: 02/05/2025 00:04 Notification Reason: Labor Status; Uterine Activity Datetime: 02/05/2025 00:01 I/O Interventions: Straight Cath (ml) @ 100 Datetime: 02/04/2025 23:59 Patient Position/Activity: Right Lateral Hygiene: Bernadine Care Datetime: 02/04/2025 23:45 Monitor Interventions for UA: IUPC Inserted Datetime: 02/04/2025 23:11 STAGE 2 Pushing: Urge to Push Datetime: 02/04/2025 23:00 PAIN Pain Scale: 0 Pain Presence: Intermittent Pain Type: Contraction Pain Location: Abdomen Pain Goal: 0 Pain Relief Measures: Epidural Given Pain Coping: Breathing Through Contractions Anesthesia Level Check: T10- Umbilicus Datetime: 02/04/2025 22:53 Antibiotics: Ampicillin IV 1 Gm Datetime: 02/04/2025 21:43 Membranes Ruptured Date/Time: 02/04/2025 19:20 Datetime: 02/04/2025 20:32 VAGINAL EXAM Dilatation (cm): 10.0 Exam by: Dr. Fritz Datetime: 02/04/2025 19:20 Respirations: 17 Membrane Status: Ruptured Amniotic Fluid Amount: Small Amniotic Fluid Odor: None MATERNAL ASSESSMENT Level of Consciousness: Alert Headache: Denies Breath Sounds, Left: Clear and Equal Breath Sounds, Right: Clear and Equal Nausea/Vomiting: Denies RUQ Epigastric Pain: Denies Medication Comments: 1915 Comfort Measures: Breathing/Relaxation TEACHING Instructional Method: Verbal Labor/Induction: Labor Stages; Activity; Pushing Methods Pain Management: Epidural; Pain Scale/Goals Datetime: 02/04/2025 19:00 Category: Category II Datetime: 02/04/2025 18:59 Effacement (%): 100 Station: 0 Datetime: 02/04/2025 18:36 Epidural Procedure Other: Delivery Dose Datetime: 02/04/2025 18:35 Anesthesia Comments: at bedside to assess epidural level Datetime: 02/04/2025 17:37 Epidural Procedure: Test Dose Datetime: 02/04/2025 17:32 PROCEDURE TIME OUT Procedure Verify: Correct Patient Identity; Correct Side and Site are Marked; Accurate Procedure Consent Form; Agreement on Procedure to be Done; Correct Patient Position; Addressed Need to Administer Antibiotics or Fluids for Irrigation; Safety Precautions Based on Patient History or Medication Use ANESTHESIA Anesthesia Plans: Epidural Epidural Positioning: Sitting Datetime: 02/04/2025 17:26 Cervix, Position: Midposition Datetime: 02/04/2025 17:01 Membranes Rupture Method: Spontaneous Datetime: 02/04/2025 16:49 Stage of : Labor Datetime: 02/04/2025 13:53 Cervical Ripening Agents: Cytotec @ Datetime: 02/04/2025 08:46 Temperature Route: Oral Datetime: 02/04/2025 08:36 Cervix, Consistency: Soft
--- NOTE | 2025-02-10 09:19 | Discharge Summary ---
Discharge Summary Admit Date: 02/04/25 Discharge Date: 02/08/25 Discharging Provider: Perla Mina Code Status: Attempt Resuscitation DIAGNOSES Admission Diagnoses: 40 weeks gestation Advanced maternal age GBS positive Obesity class 1 Discharge Diagnoses with Status of Each Condition: Same Failure to descend Status post primary low transverse section Delivery of live bueno hemorrhage Acute blood loss anemia. HOSPITAL COURSE Hospital Course: Patient was admitted at 40 weeks 2 days gestation for induction of labor secondary to advanced maternal age at term. She received 2 doses of misoprostol followed by spontaneous rupture of membranes. She progressed to complete, but with hypotonic uterine contractions, pushed for an hour then oxytocin was started. Contractions still were spaced out, so an IUPC was placed to assess contraction strength. We continued to increase oxytocin as she reinitiated pushing. She continued to push for 2 additional hours and did not make any significant descent. At that time, we discussed risk benefits of continued pushing versus section, and she requested a section. section was unremarkable, and the delivery of a healthy female . Approximately 1 hour after delivery, was called back to the room for significant hypotension. A rapid response was called. She was given multiple uterotonics including oxytocin, Methergine, Hemabate, as well as tranexamic acid. Due to her hypotension and receiving boluses, we were concerned about acute blood loss anemia although she had little vaginal bleeding. Fundal assessment and bimanual massage and noted a copious amount of blood and clot in the uterus, trapped until expelling. She had approximately 2 L of blood in the uterus at that time. We attempted to place a Aixa device, but due to the large fibroid, did not feel that it was working effectively as very little blood came out. Upon its removal, additional clots were removed. Attempt to place a Bakri balloon, but again could not get past the fibroid, so uterotonic medications and fundal massage continued until bleeding slowed. Over the course the morning, she had approximately 4 L of blood loss. See resuscitation notes from nursing. Due to her hemodynamic instability, she did end up initially with 4 units of packed red blood cells, 2 units of FFP, 2 units of cryoprecipitate during the massive transfusion protocol. Her bleeding did slow significantly although was intermittent throughout the morning. She was alert throughout, although was tired and nauseated to varying degrees intermittently. Later in the morning had additional uterine atony, so Aixa was replaced. She had methergine scheduled throughout the date. she did well but did receive an additional unit of PRBC before discharging on postoperative day 3. ALLERGIES Allergies Allergy/AdvReac Type Severity Reaction Status Date / Time No Known Drug Allergies Allergy Verified 02/03/25 09:15 MEDICATIONS Ambulatory Orders Medication Instructions Recorded Confirmed acetaminophen 325 mg capsule 325 - 650 mg (1 - 2 x 325 mg) PO 02/08/25 Q4H PRN pain #60 caps cholecalciferol (vitamin D3) 125 125 mcg PO QDAY #90 c aps 02/08/25 mcg (5,000 unit) capsule docusate sodium 100 mg capsule 100 mg PO BID PRN const ipation #60 02/08/25 (Colace) caps ferrous sulfate 325 mg (65 mg 325 mg PO Q OTHER DAY #9 0 tabs 02/08/25 iron) tablet (FeroSul) ibuprofen 600 mg tablet 600 mg PO Q6H PRN pain #30 t abs 02/08/25 oxycodone 5 mg tablet 5 mg PO Q4H PRN pain #10 tab s 02/08/25 polyethylene glycol 3350 17 17 g PO QDAY PRN constipat ion #510 02/08/25 gram/dose oral powder (Miralax) grams vitamins no.154-ferrous 1 tab PO .daily #90 t abs 02/08/25 fumarate 27 mg-folic acid 1 mg tablet PHYSICAL EXAM AT DISCHARGE General Appearance: positive No acute distress and Alert Respiratory: positive No respiratory distress Cardiovascular: positive Regular rate & rhythm Abdomen: positive Non-tender and Other (wound healing well. ) Extremities: positive Non-tender and No pedal edema Neurologic/Psychiatric: positive Oriented x3 LABS 02/07/25 09:09 02/05/25 18:41 FOLLOW UP Follow Up: With [facility] in one week. TIME SPENT Time Spent in Discharge (Minutes): 40 Discharge Plan Discharge Patient Disposition: RETIREMENT, Self Care Condition: Good Prescriptions: Continued ferrous sulfate [FeroSul] 325 mg (65 mg iron) tablet 325 mg PO Q OTHER DAY Qty: 90 4RF Rx Instructions: best if taken in the morning. docusate sodium [Colace] 100 mg capsule 100 mg PO BID PRN (Reason: constipation) Qty: 60 1RF ibuprofen 600 mg tablet 600 mg PO Q6H PRN (Reason: pain) Qty: 30 1RF polyethylene glycol 3350 [Miralax] 17 gram/dose powder 17 g PO QDAY PRN (Reason: constipation) Qty: 510 0RF cholecalciferol (vitamin D3) 125 mcg (5,000 unit) capsule 125 mcg PO QDAY Qty: 90 4RF oxycodone 5 mg tablet 5 mg PO Q4H PRN (Reason: pain) Qty: 10 0RF acetaminophen 325 mg capsule 325 - 650 mg PO Q4H PRN (Reason: pain) Qty: 60 1RF PNV no.154-iron fumarate-folic 27 mg iron- 1 mg tablet 1 tab PO .daily Qty: 90 4RF Discontinued aspirin [Adult Low Dose Aspirin] 81 mg tablet,delayed release (DR/EC) 81 mg PO DAILY Activity Restrictions/Additional Instructions: nothing in vagina for 6 week. no lifting more than 15 pounds for 6 weeks. OK to shower, no bath for 2 weeks. Constipation is common. Be sure to eat lots of fruits and veggie, drink lots of water. Coffee can be helpful if you like it and 1 cup is fine for baby Diet: Regular Print Language: Armenian Patient Instructions: Section Dc Follow-up Care: Oscar Fritz MD [Primary Care Provider, Obstetrics/Gynecology] Report called to and time (if no answer, doc. time of each call attempted): na Vitals documented within 30 minutes of discharge?: Yes
== END 2025-02-08 12:25 | disposition home or self-care (01) | DRG 787 ==
LOC: FBP 08:05 → WFO 08:05 → FBP 08:07
PROVIDERS: ADMIT Obstetrics & Gynecology; ATTEND Obstetrics & Gynecology
DX: O62.0 Primary inadequate contractions; O62.1 Secondary uterine inertia; O99.824 Streptococcus B carrier state complicating childbirth; O99.214 Obesity complicating childbirth; D25.1 Intramural leiomyoma of uterus; O76 Abnormality in fetal heart rate and rhythm complicating labor and delivery; D62 Acute posthemorrhagic anemia; Z3A.40 40 weeks gestation of pregnancy; Z37.0 Single live birth; O34.13 Maternal care for benign tumor of corpus uteri, third trimester; O72.1 Other immediate postpartum hemorrhage; D25.2 Subserosal leiomyoma of uterus